=== PATIENT | female | born 1930 | race Caucasian/White ===

== ENCOUNTER 2018-08-25 19:58 | Inpatient (IN) | payer MEDICARE, BC ==
[2018-08-25 20:11] VITALS: BP 139/73
[2018-08-25 20:54] LABS: APTT 23.9 SECONDS (22.8-39.4); BASOPHILS 0.3 % (0-2); EOSINOPHILS 5.8 % (0-7); HEMATOCRIT 40.4 % (36.0-48.0); IMMATURE GRANULOCYTES 0.5 % (0-5); INR 1.1 (0.85-1.17); LYMPHOCYTES 10.7 % (15-50); MCH 28.1 pg (26.0-34.0); MCHC 32.2 g/dL (31.0-37.0); MCV 87.4 fL (80.0-100.0); MEAN PLATELET VOLUME 10.4 fL (7.4-10.4); MONOCYTES 9.1 % (2-11); NEUTROPHILS 73.6 % (40-80); PLATELET COUNT 141 10x3/uL (130-400); PROTIME 13.7 SECONDS (11.6-15.0); RBC 4.62 10x6/uL (4.00-5.40); RDW 14.3 % (11.5-14.5); WBC 7.6 10x3/uL (4.8-10.8)
[2018-08-25 20:55] LABS: UDS - AMPHET NEGATIVE QUAL (NEGATIVE); UDS - BARB NEGATIVE QUAL (NEGATIVE); UDS - BENZO POSITIVE QUAL (NEGATIVE); UDS - COCAINE NEGATIVE QUAL (NEGATIVE); UDS - OPIATE POSITIVE QUAL (NEGATIVE); UDS - PCP NEGATIVE QUAL (NEGATIVE); UDS - THC NEGATIVE QUAL (NEGATIVE)
[2018-08-25 21:00] LABS: ALKALINE PHOSPHATASE 54 U/L (46-116); ALT (SGPT) 21 U/L (10-68); BILIRUBIN - TOTAL 0.59 mg/dL (0.2-1.3); CALC OSMOLALITY 290 mosm/kg (275-300); CALCIUM 9.7 mg/dL (8.5-10.1); CARBON DIOXIDE 28.7 mmol/L (21.0-32.0); CHLORIDE - SERUM 104 mmol/L (98-107); CREATININE - SERUM 1.2 mg/dL (0.6-1.3); GLUCOSE 196 mg/dL (74-106); POTASSIUM - SERUM 4.4 mmol/L (3.5-5.1); PROTEIN - SERUM 5.9 g/dL (6.4-8.2); SODIUM 141 mmol/L (136-145); UREA NITROGEN 26 mg/dL (7-18); eGFR NON AFRICAN AMERICAN 45 mL/min (90-120)
[2018-08-25 21:12] LABS: CKMB 0.3 U/L (0.0-3.6); CREATINE KINASE 16 UL (21-215); PRO BNP 336 pg/mL (0-450); THYROID STIMULATING HORMONE 4.03 uIU/mL (0.36-3.74); TROPONIN-I < 0.017 ng/mL (0.000-0.060)
--- NOTE | 2018-08-25 22:32 | NUR ---
BLADDER SCAN COMPLETED, 212ML.
[2018-08-25 23:04] VITALS: BP 193/117
--- NOTE | 2018-08-26 00:02 | NUR ---
PT ARRIVED TO FLOOR VIA STRECHER WITH LISETH ARANDA FROM ER. PT ALERT BUT CONFUSED OF SITUATION. PT WAS ABLE TO JONATHAN HERSELF TO BED. COMPLAINS OF PAIN IN HER RIGHT KNEE STATING, "ARTHRITIS." PT VITALS STABLE, TELEMETRY PLACED PT RUNNING 86 SINUS RYTHEM. SON AT BEDSIDE. LATRICE BED ALARM IN PLACE. SIDE RAILS UP X2, CALL LIGHT WITHIN REACH. WILL CONTINUE TO MONITOR.
[2018-08-26] MEDS ORDERED: CRESTOR5 MG PO (01:42)
[2018-08-26] MEDS ORDERED: DONEPEZIL HCL10 MG PO (01:42)
[2018-08-26] MEDS ORDERED: ATIVAN0.5 MG PO (01:44)
[2018-08-26] MEDS ORDERED: ASPIRIN81 MG PO (01:44)
[2018-08-26] MEDS ORDERED: MULTI-DAY VITAM1 TAB PO (01:45)
[2018-08-26] MEDS ORDERED: CALCIUM 600 +1 EAC3 PO (01:46)
--- NOTE | 2018-08-26 02:11 | NUR ---
CALL FROM BRIANNA [facility] [place]. NEW ORDERS RECIEVED FOR PATIENT.
[2018-08-26 02:42] LABS: BASOPHILS 0.5 % (0-2); EOSINOPHILS 2.2 % (0-7); HEMATOCRIT 35.4 % (36.0-48.0); HEMOGLOBIN 11.3 g/dL (12-16); IMMATURE GRANULOCYTES 0.3 % (0-5); LYMPHOCYTES 18.1 % (15-50); MCH 27.6 pg (26.0-34.0); MCHC 31.9 g/dL (31.0-37.0); MCV 86.3 fL (80.0-100.0); MEAN PLATELET VOLUME 10.7 fL (7.4-10.4); MONOCYTES 10.4 % (2-11); NEUTROPHILS 68.5 % (40-80); PLATELET COUNT 135 10x3/uL (130-400); RDW 14.1 % (11.5-14.5); WBC 5.9 10x3/uL (4.8-10.8)
[2018-08-26 03:02] LABS: CALC OSMOLALITY 285 mosm/kg (275-300); CALCIUM 9.4 mg/dL (8.5-10.1); CARBON DIOXIDE 25.6 mmol/L (21.0-32.0); CHLORIDE - SERUM 106 mmol/L (98-107); CKMB 0.3 U/L (0.0-3.6); CREATINE KINASE 16 UL (21-215); CREATININE - SERUM 1.1 mg/dL (0.6-1.3); SODIUM 141 mmol/L (136-145); TROPONIN-I < 0.017 ng/mL (0.000-0.060); UREA NITROGEN 21 mg/dL (7-18); eGFR NON AFRICAN AMERICAN 50 mL/min (90-120)
[2018-08-26 03:03] LABS: GLUCOSE 137 mg/dL (74-106)
--- NOTE | 2018-08-26 03:23 | NUR ---
ADMISSION ASSESSMENT COMPLETED. PT RESTING IN BED. NO DISTRESS. MONITOR. IMPLEMENT PLAN OF CARE.
[2018-08-26 04:00] VITALS: BP 102/53
--- NOTE | 2018-08-26 07:40 | NUR ---
AM ROUNDS PT RESTING COMFORTABLY IN BED, WITH EYES CLOSED, EASILY AROUSES TO VOICE. PT A/O X2, RESP EVEN AND NONLABORED ON RA. MONITOR SHOWING SR WITH RATE OF 99. PT DENIES ANY NEEDS AT THIS TIME, SON AT BEDSIDE, CALL LIHGT IN REACH, BEDSIDE RAILS X2, NAD NOTED. WILL CONTINUE PLAN OF CARE.
[2018-08-26 07:50] VITALS: BP 102/53; BMI 26.6
[2018-08-26 08:13] VITALS: BP 135/69
[2018-08-26 09:08] LABS: CKMB 0.4 U/L (0.0-3.6); CREATINE KINASE 18 UL (21-215); TROPONIN-I < 0.017 ng/mL (0.000-0.060)
--- NOTE | 2018-08-26 09:22 | NUR ---
HELPED PT TO BATHROOM AND BACK TO BED, PT ONLY HAD A SMALL BM. NEW BAG OF LR HUNG AT THIS TIME. PT DENIES ANY OTHER NEEDS AT THIS TIME. SON AT BEDSIDE, CALL LIGHT I REACH, BEDSIDE RAILS X2, NAD NOTED, WILL CONTINUE TO MONITOR.
[2018-08-26 12:35] VITALS: BMI 26.6
[2018-08-26 13:04] LABS: APPEARANCE CLEAR (CLEAR); BILIRUBIN NEGATIVE (NEGATIVE); COLOR YELLOW (YELLOW); GLUCOSE NEGATIVE (NEGATIVE); KETONE NEGATIVE (NEGATIVE); NITRITE NEGATIVE (NEGATIVE); PROTEIN NEGATIVE (NEGATIVE); SPECIFIC GRAVITY 1.005 (1.005-1.020); UROBILINOGEN NORMAL (NORMAL)
--- NOTE | 2018-08-26 13:09 | NUR ---
LT FA IV PULLED OUT ACCIDENTLY WITH CATHETER TIP INTACT. SON WANTS TO WAIT UNTIL DOCTOR ROUNDS BEFORE STARTING NEW IV. CAROTID DROPLER BEING DONE AT THIS TIME. PT DENIES ANY NEEDS AT THIS TIME. CALL LIGHT IN REACH, NAD NOTED, WILL CONTINUE TO MONITOR TO MONITOR.
[2018-08-26 13:10] LABS: BACTERIA NONE SEEN /hpf (NONE SEEN); EPITHELIAL CELLS NSEEN /hpf (0-5); RED CELLS - URINE 0-5 /hpf (0-5); WHITE CELLS - URINE NSEEN /hpf (0-5)
[2018-08-26 13:18] VITALS: BP 127/65
--- NOTE | 2018-08-26 13:18 | NUR ---
ORTHOSTATIC BLOOD PRESSURES LAYING 127/65, SITTING 101/64, AND STANDING 103/57.
--- NOTE | 2018-08-26 14:49 | NUR ---
NOTIFIED DR. BOOTHE AND CONNIE VALDIVIA ABOUT PT'S IV COMING OUT, AND PT NOT WANTING ANOTHER IV STARTED. DR. BOOTHE STATED THAT IT WOULD BE OK FOR NOW NOT TO START NEW IV.
--- NOTE | 2018-08-26 15:41 | NUR ---
PT RESTING COMFORTABLY IN BED, WITH EYES CLOSED, FAMILY AT BEDSIDE, CALL LIGHT IN REACH, NAD NOTED, WILL CONTINUE TO MONITOR.
--- NOTE | 2018-08-26 16:16 | NUR ---
HELPED PT TO BATHROOM AND BACK TO BED, PT STATING " I WANT TO GO HOME". INFORMED PT THAT SHE WILL BE STAYING OVERNIGHT, PT STATED " I AM FINE I DONT NEED TO BE HERE." PT DENIES ANY OTHER NEEDS AT THIS TIME. CALL LIGHT IN REACH, FAMILY AT BEDSIDE, NAD NOTED, WILL CONTINUE TO MONITOR.
[2018-08-26 17:19] VITALS: BP 145/81
--- NOTE | 2018-08-26 19:30 | NUR ---
PT LAYING IN BED ALERT X2. PT CONFUSED WITH TIME AND SITUATION. RR EVEN AND UNLABORED. NO DISTRESS. FAMILY AT BEDSIDE. BED LOW, ALARM IN PLACE, SIDE RAILS UP X2, CALL LIGHT WITHIN REACH. WILL CONTINUE TO MONITOR.
[2018-08-26 20:00] VITALS: BP 139/72
--- NOTE | 2018-08-26 22:16 | NUR ---
PT UP WALKING AROUND IN HALLWAY WITH YANE AT SIDE. PT HAS NO S/S OF DISTRESS. WILL CONTINUE TO MONITOR.
[2018-08-27] VITALS: BP 133/79
--- NOTE | 2018-08-27 03:49 | NUR ---
PT ASSISTED TO BATHROOM BY FAMILY. NO S/S OF DISTRESS. BED LOW CALL LIGHT WITHIN REACH. WILL CONTINUE TO MONITOR.
[2018-08-27 04:00] VITALS: BP 170/90
--- NOTE | 2018-08-27 05:05 | NUR ---
I have reviewed this patient and I concur with the Shift Assessment completed by the Licensed Practical Nurse today this shift.
[2018-08-27 05:22] LABS: BASOPHILS 0.7 % (0-2); EOSINOPHILS 14.3 % (0-7); HEMATOCRIT 35.7 % (36.0-48.0); HEMOGLOBIN 11.4 g/dL (12-16); IMMATURE GRANULOCYTES 0.5 % (0-5); LYMPHOCYTES 25.2 % (15-50); MCH 27.7 pg (26.0-34.0); MCHC 31.9 g/dL (31.0-37.0); MCV 86.7 fL (80.0-100.0); MEAN PLATELET VOLUME 10.9 fL (7.4-10.4); MONOCYTES 12.7 % (2-11); NEUTROPHILS 46.6 % (40-80); PLATELET COUNT 131 10x3/uL (130-400); RBC 4.12 10x6/uL (4.00-5.40); RDW 14.4 % (11.5-14.5)
[2018-08-27 05:35] LABS: ALBUMIN 2.5 g/dL (3.4-5.0); ANION GAP 13.4 mmol/L (8-16); BILIRUBIN - TOTAL 0.45 mg/dL (0.2-1.3); CALCIUM 8.7 mg/dL (8.5-10.1); CARBON DIOXIDE 26.4 mmol/L (21.0-32.0); POTASSIUM - SERUM 3.8 mmol/L (3.5-5.1); PROTEIN - SERUM 5.5 g/dL (6.4-8.2); WBC 4.3 10x3/uL (4.8-10.8)
[2018-08-27 08:51] VITALS: BP 138/76
[2018-08-27 12:21] VITALS: BP 147/83
[2018-08-27] MEDS ORDERED: GEODON20 MG PO (16:39)
--- NOTE | 2018-08-27 17:36 | NUR ---
ALERT AND ORIENTED X2. FAMILY AT BEDSIDE. NO IV. DISCHARGE INSTRUCTIONS GIVEN VERBALLY AND WRITTEN. DISCHARGE PAPERS SIGNED ON CHART. ESCORT TO RIDE VIA WHEELCHAIR. REMAINS FREE FROM INJURY.
--- NOTE | 2018-08-28 08:17 | MORECARE ---
CASE MANAGEMENT DISCHARGE SUMMARY PATIENT: BRIAN FONTENOT UNIT: [id number] ADM DATE: 08/25/18 AGE: 87 : [birth year] SEX: F ROOM/BED: D.2109 AUTHOR: LIZZ LOPEZ PHYSICIAN: REFERRING PHYSICIAN: ZACHARY HILL DO DATE OF SERVICE: 08/28/18 Discharge Plan Patient Name: BRIAN FONTENOT Facility: [facility]:[place] : 1930 Planned Disposition: Home Anticipated Discharge Date: 08/27/18 Discharge Date: 08/27/2018 Expected LOS: 2 Initial Reviewer: [email or web address] Initial Review Date: 08/28/2018 Generated: 08/28/18 9:16 am Coverage Notice Reviewer: [email or web address] Frank Severino Notice Issued Date-Time: 08/26/2018 12:30 Notice Type: Medicare Outpatient Observation Notice Notice Delivered To: Patient Relationship to Patient: Self Machine Stripper Name: Delivery Method: HAND - Hand Delivered Alice Days: Prior Verbal Notification: Recipient Understood Notice: Yes Recipient Signature: Yes Med Rec Note Co-signed by Attending: Coverage Notice Comment: Patient Name: BRIAN FONTENOT Page [phone] at 0817 All edits/amendments must be made on the electronic document DICTATION DATE: 08/28/18815 HAT LINING BLOCKER: JASSON 08/28/18815 RPT#: [id number] DC DATE:08/27/18 STATUS: DIS IN [place] [id number] [place] [address] END OF REPORT
--- NOTE | 2018-08-28 09:50 | EC ---
PATIENT:BRIAN FONTENOT DATE OF SERVICE: 08/25/18 SEX: F MEDICAL RECORD: [id number] DATE OF : [birth year] LOCATION:D.M2 D.210 AGE OF PATIENT: 87 ADMISSION DATE: 08/25/18 REFERRING PHYSICIAN: INTERPRETING PHYSICIAN: DAYAMI STROUD MD ECHOCARDIOGRAM REPORT ECHO CHARGES 4 ECHO COMPLETE Date: 08/26/18 CLINICAL DIAGNOSIS: SYNCOPE ECHOCARDIOGRAPHIC MEASUREMENTS (adult normal given) AC root (d.<3.7cm) 3.5 cm LV Septum d (<1.2 cm> 1.2 cm Valve Excursion 2.0 cm LV Septum (systole) 2.0 cm Left Atria (s.<4.0cm> 3.1 cm LVPW d(<1.2cm) 1.4 cm RV (d.<2.3cm) 2.6 cm LVPW (sytole) 1.9 cm LV diastole(<5.6CM) 5.3 cm MV E-F(>70mm/sec) cm LV systole 3.2 cm LVOT Diameter 1.9 cm MV exc.(>10mm) cm Est.ejection fraction (50-75%) % DOPPLER: LVIT cm/sec A 122 cm/sec E 77.0 cm/sec LA cm/sec RVSP 53.0 mmHg LVOT 88.0 cm/sec AOP1/2T m/s Asc. Ao 109 cm/sec RVOT 62.0 cm/sec RA cm/sec PA 70.0 cm/sec AV Gradient Peak 4.8 mmHg AV Mean 2.4 mmHg AV Area 2.0 cm MV Gradient Peak 3.6 mmHg MV Mean 1.2 mmHg MV Area cm COMMENTS: Computer Numerical Control Programmer: Melecio MILESOE Train Dispatcher: 1 Dr. Stroud TAPE# PACS Pericardial Effusion N DATE OF SERVICE: 08/26/2018 FINDINGS: 1. Left ventricular chamber size is within normal limits. Left ventricular systolic function is normal. Overall ejection fraction is estimated at 55%. 2. Left atrium, right atrium, and right ventricular chamber sizes are within normal limit. 3. Valvular structures: The mitral valve demonstrates heavy calcium but no mitral stenosis. Aortic valve as well demonstrates calcific aortic sclerosis, but no aortic stenosis. ECHOCARDIOGRAM REPORT [id number] BRIAN FONTENOT 4. Doppler interrogation only reveals trace mitral regurgitation and moderate tricuspid regurgitation. No other valvular insufficiency or stenosis. Pulmonary systolic pressure is estimated at 53 mmHg. 5. No evidence of pericardial effusion or left ventricular thrombus. TRANSINT:[id number] Voice Confirmation ID: [id number] DOCUMENT ID: [id number] DAYAMI STROUD MD at 0950 CC: [id number] DICTATION DATE: 08/27/18 1102 SHOP MECHANIC HELPER: 08/27/18 1650 DIS IN 08/27/18 [place] [id number] [place] [id number]
== END 2018-08-27 17:38 | disposition home or self-care (01) | DRG 312 ==
LOC: D.ER 19:58 → D.M2 22:03 → OBSVTIME 22:03 → D.M2 08-27 12:28
PROVIDERS: Family Medicine; ADMIT Family Medicine; ATTEND Family Medicine
DX: R55 Syncope and collapse (principal); F05 Delirium due to known physiological condition; F03.90 Unspecified dementia, unspecified severity, without behavioral disturbance, psychotic disturbance, mood disturbance, and anxiety; F11.90 Opioid use, unspecified, uncomplicated

== ENCOUNTER 2019-05-13 15:33 | Inpatient (IN) | payer MEDICARE, BC ==
[2019-05-13] VITALS (7 sets, daily range): BP systolic 120–166; BP diastolic 56–86; BMI 21.9
[~2019-05-13] VITALS: Ht 170.2 cm; Wt 63.5 kg
[~2019-05-13 15:33] MED LIST: ASPIRIN81 MG PO; ATIVAN0.5 MG PO; CALCIUM 600 +1 EAC3 PO; CRESTOR5 MG PO; DONEPEZIL HCL10 MG PO; GEODON20 MG PO; MULTI-DAY VITAM1 TAB PO
[2019-05-13 16:48] LABS: BASOPHILS 0.1 % (0-2); EOSINOPHILS 1.2 % (0-7); HEMATOCRIT 43.3 % (36.0-48.0); HEMOGLOBIN 14.2 g/dL (12-16); IMMATURE GRANULOCYTES 0.5 % (0-5); LYMPHOCYTES 12.5 % (15-50); MCH 28.4 pg (26.0-34.0); MCHC 32.8 g/dL (31.0-37.0); MCV 86.6 fL (80.0-100.0); MEAN PLATELET VOLUME 10.7 fL (7.4-10.4); MONOCYTES 6.4 % (2-11); NEUTROPHILS 79.3 % (40-80); RDW 15.6 % (11.5-14.5); WBC 8.2 10x3/uL (4.8-10.8)
[2019-05-13 16:52] LABS: PROTIME 13.1 SECONDS (11.6-15.0)
[2019-05-13 16:53] LABS: ANION GAP 15.3 mmol/L (8-16); CALCIUM 9.5 mg/dL (8.5-10.1); CARBON DIOXIDE 23.4 mmol/L (21.0-32.0); CREATININE - SERUM 1.8 mg/dL (0.6-1.3); POTASSIUM - SERUM 3.7 mmol/L (3.5-5.1)
[2019-05-13 16:58] LABS: PLATELET COUNT 187 10x3/uL (130-400)
[2019-05-13 16:59] LABS: ALBUMIN 3.5 g/dL (3.4-5.0); BILIRUBIN - TOTAL 0.8 mg/dL (0.2-1.3); PROTEIN - SERUM 6.9 g/dL (6.4-8.2)
--- NOTE | 2019-05-13 17:18 | NUR ---
PT TO CT
[2019-05-13 18:18] LABS: CKMB 0.8 U/L (0.0-3.6); CREATINE KINASE 31 UL (21-215); TROPONIN-I < 0.017 ng/mL (0.000-0.060)
[2019-05-13 18:36] LABS: BILIRUBIN NEGATIVE (NEGATIVE); GLUCOSE 500 mg/dL (NEGATIVE); KETONE NEGATIVE (NEGATIVE); NITRITE NEGATIVE (NEGATIVE); SPECIFIC GRAVITY 1.025 (1.005-1.020); UROBILINOGEN NORMAL (NORMAL)
[2019-05-13 18:37] LABS: AMORPHOUS SEDIMENT <1+ /lpf (NONE SEEN); BACTERIA MANY /hpf (NEGATIVE); GRANULAR CAST 0-5 /lpf (NONE SEEN); WHITE CELLS - URINE OCC /hpf (NEGATIVE)
--- NOTE | 2019-05-13 19:09 | NUR ---
PT LEFT WITH DR LARA FOR SURGERY. FAMILY AT BEDSIDE. SURGERY CONSENT, BLOOD TRANSFUSION CONSENT AND ANESTHESIOLOGY CONSENT SIGNED.
--- NOTE | 2019-05-13 22:45 | NUR ---
CALLED WEB PUBLISHER IN REGARDS TO PULLING MEDS
[2019-05-14] VITALS (7 sets, daily range): BP systolic 109–128; BP diastolic 59–86; Ht 170.2 cm; Wt 63.5 kg
[2019-05-14 06:28] LABS: BASOPHILS 0.3 % (0-2); IMMATURE GRANULOCYTES 0.5 % (0-5); LYMPHOCYTES 13.1 % (15-50); MCH 27.6 pg (26.0-34.0); MCV 86.3 fL (80.0-100.0); MEAN PLATELET VOLUME 10.4 fL (7.4-10.4); MONOCYTES 7.2 % (2-11); NEUTROPHILS 76.9 % (40-80); RDW 15.5 % (11.5-14.5)
[2019-05-14 06:34] LABS: HEMATOCRIT 32.8 % (36.0-48.0); HEMOGLOBIN 10.5 g/dL (12-16); PLATELET COUNT 128 10x3/uL (130-400); WBC 5.9 10x3/uL (4.8-10.8)
[2019-05-14 07:27] LABS: BILIRUBIN - TOTAL 0.99 mg/dL (0.2-1.3); CALCIUM 7.5 mg/dL (8.5-10.1); CREATININE - SERUM 1.4 mg/dL (0.6-1.3); POTASSIUM - SERUM 3.5 mmol/L (3.5-5.1)
[2019-05-14 07:28] LABS: ALBUMIN 2.5 g/dL (3.4-5.0); ANION GAP 18.9 mmol/L (8-16); CARBON DIOXIDE 16.6 mmol/L (21.0-32.0); PROTEIN - SERUM 4.7 g/dL (6.4-8.2)
--- NOTE | 2019-05-14 07:30 | NUR ---
RESTING QUIETLY WITH EYES CLOSED. BREAKFAST SERVED IN ROOM. FAMILY AT BEDSIDE.
--- NOTE | 2019-05-14 07:41 | OP ---
PATIENT NAME: BRIAN ESTRADA MEDICAL RECORD: [id number] :[birth year] LOCATION:D.M3 D.1212 ADMISSION DATE:05/13/19 SURGEON: REYES LARA DO DATE OF OPERATION: 05/13/2019 PROCEDURE PERFORMED: Right gema hip arthroplasty. PREOPERATIVE DIAGNOSIS: Right displaced femoral neck fracture. POSTOPERATIVE DIAGNOSIS: Right displaced femoral neck fracture. INDICATIONS: Ms. Estrada is an 88-year-old female who is demented, who fell today on the right hip. She is very well cared for by her family. She was brought to the ER and seen to have a hip fracture. She cannot bear weight on it. It was shortened and externally rotated. I informed her and the family that we would need to do a gema hip on this and that she would be a high risk for mortality due to her dementia and the hip fracture. They were understanding of that and informed him of the risks of infection, bleeding, damage to nerves and vessels, need for further surgery, fracture, failure of implants and blood clots, and even and she signed the consent. SURGEON: Reyes Lara DO DESCRIPTION OF PROCEDURE: The patient was taken to the operative suite, laid in the supine position, given general anesthetic and intubated. She was given 2 grams Ancef and a gram of TXA prior to starting the procedure. We then moved over to the [place] table and positioner. A timeout was performed, everyone was in agreement with the correct side, site, patient and procedure. She was then prepped and draped in sterile fashion. I reprepped the hip prior to putting the final drape on with ChloraPrep, and once that had been done, the timeout was then performed. We began by making an incision along the tensor fasciae jonna muscle. Careful dissection was made down to the muscle itself, opening up the fascia to it. The fascia was taken anteriorly muscle posteriorly and then opened up the rectus interval. The rectus interval was then opened and the dissection was made down to the ascending branch of lateral femoral circumflex artery. These were tied off with the accompanying veins and coagulated with the Aquamantys and cut. I then opened up the capsule putting Homans' on either side of the neck and on opening up the capsule, portillo of blood came out and tagged the capsule with #2 Ethibond. We then put a Hohmann intracapsular and made a neck cut, removed the neck cut and then the head of the femur. Once this was all cleaned out, the femur was exposed. A cookie cutter and canal finder were used to open up the canal and then broached up to a 13 and 13 was reduced and seems to fit very well with a -6 neck. We then brought it out and there was a slightly turned where the stem was, we put a 14 down, it was too tight and resected with a 13 and once the 13 was down, it fit very well and did not move at all. Once we did that the hip was reduced again with a 13 stem down with a high offset neck and x-rays were taken. It was confirmed to be in good position on AP of the hip and the appropriate lengths compared to the left hip on AP pelvis, no fracture seen in the femur either. The stem fit very well and the hip was then irrigated with 10% povidone iodine with 500 mL normal saline, it was up for 3 minutes. It was then irrigated out with over a liter of normal saline and put the tobramycin and vancomycin powder along with the Najma powder. The capsule was then closed with #2 Ethibond and then the tensor fascia jonna fascia was closed with #1 Vicryl in [id number] fashion and then a running locking stitch. The skin was then closed with 2-0 Vicryl in an inverted OPERATIVE REPORT [id number] BRIAN ESTRADA interrupted fashion, 4-0 Monocryl in the skin and Prineo glue placed on the skin. Dressed with Telfa and Tegaderm. She was then given another gram of TXA, awakened and taken to recovery in stable condition. Blood loss approximately 150 mL. COMPLICATIONS: None. TRANSINT:[id number] Voice Confirmation ID: [id number] DOCUMENT ID: [id number] REYES LARA DO at 0741 CC: [id number] DICTATION DATE: 05/13/192104 HEAD STRENGTH AND CONDITIONING COACH: 05/14/19 0209 ADM IN [facility] [address] [place] [address]
--- NOTE | 2019-05-14 09:39 | NUR ---
AWAKE AND ALERT. ORIENTED X3. C/O PAIN TO LEFT HIP. WILL GIVE PRN. LUNGS ARE CLEAR BILATERALLY, NO COUGH NOTED. USED IS INSTRUCTED. SKIN IS INTACT WITHOUT REDNESS EXCEPT INCISION TO LEFT HIP/GROIN AREA WHCIH HAS A DRY INTACT DRESSING IN PLACE. ROCK PATENT WITH CLEAR YELLOW URINE. SON AT BEDSIDE. UP TO CHAIR WITH MAX ASSIST OF 2 TO CHAIR AT BEDSIDE. REQUESTED AND GIVEN ONE HYDROCODONE AFTER TRANSFER FOR PAIN MANAGMENT WITH C/O IT HURTS, IT HURTS.
--- NOTE | 2019-05-14 09:50 | MORECARE ---
CASE MANAGEMENT DISCHARGE SUMMARY PATIENT: BRIAN FONTENOT UNIT: [id number] ADM DATE: 05/13/19 AGE: 88 : [birth year] SEX: F ROOM/BED: D.1212 AUTHOR: LIZZ LOPEZ PHYSICIAN: REFERRING PHYSICIAN: JESI CARBAJAL MD DATE OF SERVICE: 05/14/19 Discharge Plan Patient Name: BRIAN FONTENOT Facility: [facility]:[place] : 1930 Planned Disposition: Anticipated Discharge Date: 05/15/19 Discharge Date: Expected LOS: 2 Initial Reviewer: [email or web address] Initial Review Date: 05/13/2019 Generated: 05/14/19 10:49 am Coverage Notice Reviewer: [email or web address] Frank Donws Notice Issued Date-Time: 05/14/2019 9:42 Notice Type: IM Admission Notice Notice Delivered To: Family Member Relationship to Patient: Son Office Clinician Name: JON FONTENOT Delivery Method: - Alice Days: Prior Verbal Notification: Recipient Understood Notice: Yes Recipient Signature: Yes Med Rec Note Co-signed by Attending: Coverage Notice Comment: PEÑA FORM SIGNED BY PATIENT'S SON JON FONTENOT. Patient Name: BRIAN FONTENOT Page [phone] at 0950 All edits/amendments must be made on the electronic document DICTATION DATE: 05/14/1949 PROJECTION ENGINEER: JASSON 05/14/19 0949 RPT#: [id number] DC DATE: STATUS: ADM IN [facility] [address] [place] [address] END OF REPORT
--- NOTE | 2019-05-14 09:57 | MORECARE ---
CASE MANAGEMENT DISCHARGE SUMMARY PATIENT: BRIAN ESTRADA UNIT: [id number] ADM DATE: 05/13/19 AGE: 88 : [birth year] SEX: F ROOM/BED: D.1212 AUTHOR: JESSICADOC PHYSICIAN: REFERRING PHYSICIAN: JESI CARBAJAL MD DATE OF SERVICE: 05/14/19 Discharge Plan Patient Name: BRIAN ESTRADA Facility: [facility]:[place] : 1930 Planned Disposition: Anticipated Discharge Date: 05/15/19 Discharge Date: Expected LOS: 2 Initial Reviewer: [email or web address] Initial Review Date: 05/13/2019 Generated: 05/14/19 10:57 am DCPIA - Discharge Planning Initial Assessment Updated by ELODIA: Heather Downs on 05/14/19 9:52 am * Is the patient Alert and Oriented? Yes * How many steps to enter\exit or inside your home? NONE * PCP Dr. Kay's nurse practitioner Levy HANSON * Pharmacy [facility] * Preadmission Environment Home with Family * ADLs Partial Dependent * Partial ADLs (Assistance needed) Bathing Dressing Medication Management * Equipment Walker Wheelchair * List name and contact numbers for known caregivers / representatives who currently or will assist patient after discharge: Jon Estrada - son - [phone] * Verbal permission to speak to the caregivers and representatives has been obtained from the patient. Yes * Community resources currently utilized Private Duty Care * Please name any agencies selected above. CG every Thrusday for bathing and ADL needs. * Additional services required to return to the preadmission environment? Yes * Can the patient safely return to the preadmission environment? Yes * Has this patient been hospitalized within the prior 30 days at any hospital? No Coverage Notice Reviewer: [email or web address] Downs Notice Issued Date-Time: 05/14/2019 9:42 Notice Type: IM Admission Notice Notice Delivered To: Family Member Relationship to Patient: Son In Process Inspector Name: JON ESTRADA Delivery Method: - Alice Days: Prior Verbal Notification: Recipient Understood Notice: Yes Recipient Signature: Yes Med Rec Note Co-signed by Attending: Coverage Notice Comment: PEÑA FORM SIGNED BY PATIENT'S SON JON ESTRADA. Reviewer: [email or web address] Downs Notice Issued Date-Time: 05/14/2019 9:42 Notice Type: Patient Choice Letter Notice Delivered To: Family Member Relationship to Patient: Son In Process Inspector Name: JON ESTRADA Delivery Method: - Alice Days: Prior Verbal Notification: Recipient Understood Notice: Yes Recipient Signature: Yes Med Rec Note Co-signed by Attending: Coverage Notice Comment: 1. [facility] 2. [facility] 3. [facility] Last DP export: 05/14/19 8:50 a Patient Name: BRIAN ESTRADA Page 13020 at 0957 All edits/amendments must be made on the electronic document DICTATION DATE: 05/14/19956 HOP GROWER: JASSON 05/14/19956 RPT#: [id number] DC DATE: STATUS: ADM IN [facility] [address] [place] [address] END OF REPORT
--- NOTE | 2019-05-14 10:00 | NUR ---
CONTINUES TO C/O NEEDING TO VOID. ROCK IS PATENT AND RETURNS SOME URINE. BLADDER SCANNER SHOWED ONLY 21 CC URINE. WILL CONTINUE TO MONITOR.
--- NOTE | 2019-05-14 10:04 | MORECARE ---
CASE MANAGEMENT DISCHARGE SUMMARY PATIENT: BRIAN ESTRADA UNIT: [id number] ADM DATE: 05/13/19 AGE: 88 : [birth year] SEX: F ROOM/BED: D.1212 AUTHOR: LIZZ LOPEZ PHYSICIAN: REFERRING PHYSICIAN: JESI CARBAJAL MD DATE OF SERVICE: 05/14/19 Discharge Plan Patient Name: BRIAN ESTRADA Facility: [facility]:[place] : 1930 Planned Disposition: Anticipated Discharge Date: 05/15/19 Discharge Date: Expected LOS: 2 Initial Reviewer: [email or web address] Initial Review Date: 05/13/2019 Generated: 05/14/19 11:04 am Comments DCP- Discharge Planning Updated by [email or web address]: Heather Downs on 05/14/19 8:[address] DC PLAN: Referral to [facility] - pending ANTICIPATED DC NEEDS: rehab CM met with patient and her son Jon Estrada to complete initial dc planning assessment. CM educated patient and her son on the CM role and verbal consent given by patient to complete assessment. CM verified patient's address, phone number, and emergency contact phone numbers. Patient lives at home with her significant other. Patient requires assistance with all ADL's and IADL's. Patient has a cg that comes every to assist with bathing, cleaning, and whatever is needed for her. Her significant other cares for her all other days. At discharge patient will require rehab. CM discussed all rehab options with patient and son. Jon signed connor form for 1. [facility] [place], 2. [facility], and 3. [facility]. CM received order from Dr. Valenzuela for rehab prescreen. CM left message on Annalise's voicemail notifying her of the referral. CONNOR form left with patient's son and placed on her chart. CM will continue to follow and will assist as needed with dc plans/needs. Heather Downs RN, [facility] DCPIA - Discharge Planning Initial Assessment Updated by [email or web address]: Heather Downs on 05/14/19 9:52 am * Is the patient Alert and Oriented? Yes * How many steps to enter\exit or inside your home? NONE * PCP Dr. Kay's nurse practitioner Levy HANSON * Pharmacy [facility] in [place] * Preadmission Environment Home with Family * ADLs Partial Dependent * Partial ADLs (Assistance needed) Bathing Dressing Medication Management * Equipment Walker Wheelchair * List name and contact numbers for known caregivers / representatives who currently or will assist patient after discharge: Jon Estrada - son - [phone] * Verbal permission to speak to the caregivers and representatives has been obtained from the patient. Yes * Community resources currently utilized Private Duty Care * Please name any agencies selected above. CG every Thrusday for bathing and ADL needs. * Additional services required to return to the preadmission environment? Yes * Can the patient safely return to the preadmission environment? Yes * Has this patient been hospitalized within the prior 30 days at any hospital? No Coverage Notice Reviewer: [id number] Frank Downs Notice Issued Date-Time: 05/14/2019 9:42 Notice Type: IM Admission Notice Notice Delivered To: Family Member Relationship to Patient: Son Brakes Inspector Name: JON ESTRADA Delivery Method: - Alice Days: Prior Verbal Notification: Recipient Understood Notice: Yes Recipient Signature: Yes Med Rec Note Co-signed by Attending: Coverage Notice Comment: PEÑA FORM SIGNED BY PATIENT'S SON JON ESTRADA. Reviewer: [id number] Frank Downs Notice Issued Date-Time: 05/14/2019 9:42 Notice Type: Patient Choice Letter Notice Delivered To: Family Member Relationship to Patient: Son Brakes Inspector Name: JON ESTRADA Delivery Method: - Alice Days: Prior Verbal Notification: Recipient Understood Notice: Yes Recipient Signature: Yes Med Rec Note Co-signed by Attending: Coverage Notice Comment: 1. [facility] 2. [facility] 3. [facility] Last DP export: 05/14/19 8:57 a Patient Name: BRIAN ESTRADA Page [phone] at 1004 All edits/amendments must be made on the electronic document DICTATION DATE: 05/14/19 1004 SENIOR PASTOR: JASSON 05/14/19 1004 RPT#: [id number] DC DATE: STATUS: ADM IN [facility] [address] [place] [address] END OF REPORT
--- NOTE | 2019-05-14 10:15 | NUR ---
ASSISTED BACK TO BED PER STAFF. POSITIONED IN BED FOR COMFORT. C/O NEED TO VOID. ROCK IS DRAINING SLOWLY. WILL MONITOR.
--- NOTE | 2019-05-14 12:30 | NUR ---
ATE ABOUT HALF OF LUNCH TRAY WITH HELP FROM SIGNIFICANT OTHER. NO C/O AT THIS TIME.
--- NOTE | 2019-05-14 14:05 | NUR ---
SIGNIFICANT OTHER AT BEDSIDE. REPORTS PATIENT ANXIOUS AND TRYING TO CLIMB OOB. REQUESTED AND GIVEN 0.5MG ATIVAN PO. WILL MONITOR.
--- NOTE | 2019-05-14 16:00 | NUR ---
VERY SLEEPY BUT RESPONDS TO VERBAL STIMULATION.
--- NOTE | 2019-05-14 16:51 | NUR ---
Rehab Note- Acute Inpatient Rehab prescreen order received. The patient is a good inpatient acute rehab candidate. Will accept when medically stable and ready for discharge. Spoke with TATYANA Romero. Will follow at this time. Thank you for this referral! Annalise Reno RN Clinical Liaison, [facility] Rehab
--- NOTE | 2019-05-14 18:30 | NUR ---
ATE ONLY A FEW BITES OF DINNER. STILL SLEPPY BUT RESPONDS TO VERBAL STIMULATION. NO CHANGES NOTED. DENIES NEEDS. TOTAL ROCK OUTPUT FOR THE SHIFT IS 625. WILL CONTINUE TO MONITOR.
--- NOTE | 2019-05-14 20:00 | NUR ---
LYING IN BED. CONFUSED AND PREOCCUPIED WITH NEEDING TO URINATE EVEN THOUGH SHE HAS A CATHETER. ORIENTED TO SELF ONLY. SIG OTHER AT BEDSIDE. RESP EVEN AND NONLABORED. ROCK CATH PATENT AND DRAINING CLEAR YELLOW URINE. DRSG NOTED TO RT HIP/THIGH AREA IS C/D/I. SALINE LOCK NOTED TO RT FOREARM. 1/2 NS @ 100 ML/HR INFUSING IN LT HAND WITHOUT DIFF. CL IN REACH.
--- NOTE | 2019-05-14 22:19 | NUR ---
SON AT BEDSIDE. PT SITTING UP IN BED, AGITATED AND YELLING OUT. SON REQUESTS ATIVAN BE GIVEN. ATIVAN GIVEN AT THIS TIME PER ORDER. SON STATES SHE WAS UP ALL NIGHT LAST NIGHT. UNABLE TO REDIRECT BEHAVIOR. PREOCCUPIED WITH NEEDING TO URINATE ALTHOUGH CATH IS PRESENT AND DRAINING. HAS PULLED STAT LOCK OFF OF LEG. LATRICE ALARM ON. CL IN REACH.
--- NOTE | 2019-05-14 23:45 | NUR ---
PTS SON AT DESK ASKING IF THERE IS ANYTHING ELSE SHE CAN HAVE FOR AGITATION. PT SITTING UP IN BED, PULLING ON IV AND CATHETER. ORIENTED TO SELF ONLY. TRYING TO GET OOB, YELLING OUT. MEDICATED WITH HALDOL ORDERED. LATRICE ALARM ON. CL IN REACH.
--- NOTE | 2019-05-15 00:30 | NUR ---
SON REFUSED MIDNIGHT V/S CHECK. PT RESTING.
--- NOTE | 2019-05-15 01:00 | NUR ---
RESTING WITH EYES CLOSED. RESP SHALLOW, NONLABORED. SNORING. SON STATES HE IS GOING TO LEAVE NOW THAT SHE HAS SETTLED DOWN AND IS RESTING. LATRICE ALARM ON. CL IN REACH.
--- NOTE | 2019-05-15 04:40 | NUR ---
RESTING QUIETLY WITH EYES CLOSED. RESP NONLABORED. NO DISTRESS. HAS RESTED WELL SINCE HALDOL WAS GIVEN. CL IN REACH. LATRICE ALARM ON FOR PT SAFETY.
[2019-05-15 04:45] VITALS: BP 118/62
[2019-05-15 06:55] LABS: BASOPHILS 0.2 % (0-2); EOSINOPHILS 2.5 % (0-7); HEMATOCRIT 30.5 % (36.0-48.0); HEMOGLOBIN 9.5 g/dL (12-16); IMMATURE GRANULOCYTES 0.2 % (0-5); LYMPHOCYTES 11.8 % (15-50); MCH 27.2 pg (26.0-34.0); MCHC 31.1 g/dL (31.0-37.0); MCV 87.4 fL (80.0-100.0); MEAN PLATELET VOLUME 10.5 fL (7.4-10.4); MONOCYTES 8.1 % (2-11); NEUTROPHILS 77.2 % (40-80); RBC 3.49 10x6/uL (4.00-5.40); RDW 15.7 % (11.5-14.5); WBC 5.2 10x3/uL (4.8-10.8)
[2019-05-15 07:04] LABS: PLATELET COUNT 102 10x3/uL (130-400)
[2019-05-15 07:09] LABS: ALBUMIN 2.3 g/dL (3.4-5.0); ANION GAP 13.5 mmol/L (8-16); BILIRUBIN - TOTAL 0.76 mg/dL (0.2-1.3); CALCIUM 7.5 mg/dL (8.5-10.1); CREATININE - SERUM 1.3 mg/dL (0.6-1.3); POTASSIUM - SERUM 3.8 mmol/L (3.5-5.1); PROTEIN - SERUM 4.5 g/dL (6.4-8.2)
[2019-05-15 07:14] LABS: CARBON DIOXIDE 21.3 mmol/L (21.0-32.0)
--- NOTE | 2019-05-15 07:30 | NUR ---
AWAKE AND ALERT. ORIENTED TO SELF ONLY. ATTEMPTS TO REORIENT PER STAFF WITHOUT SUCCESS. WILL MONITOR. LUNGS ARE CLEAR BILATERALLY, NO COUGH NOTED. SKIN IS INTACT WITHOUT REDNESS EXCEPT INCISIONS TO RIGHT HIP WHICH HAVE A DRY INTACT DRESSINGS IN PLACE. IV TO LEFT HAND IS KINKED OVER, D/C WITH CATHETER INTACT. SL TO RIGHT AC IS PATENT WITHOUT REDNESS AT INSERTION SITE. ROCK IS PATENT WITH CLEAR YELLOW URINE. BREAKFAST SERVED IN ROOM. ATTEMPTS TO FEED PER STAFF. WITHOUT SUCCESS. SHE ACTUALLY THREW MALE STAFF OUT OF ROOM.
[2019-05-15 08:11] VITALS: BP 124/65
--- NOTE | 2019-05-15 09:30 | NUR ---
UP TO BED WITH PT TO CHIAR AT BEDSIDE. C/O PAIN TO RIGHT HIP AT LEVEL 3. GIVEN ONE HYDROCODONE PO FOR SAME. WILL MONITOR.
[2019-05-15 12:21] VITALS: BP 163/83
--- NOTE | 2019-05-15 12:30 | NUR ---
LUNCH SERVED IN ROOM. SON ASSISTE WITH MEAL. ATE A FEW BITES AND ALL OF HER APPLE COBBLER.
--- NOTE | 2019-05-15 13:30 | NUR ---
ASSISTED BACK TO BED PER PT. POSITIONED FOR COMFORT.
--- NOTE | 2019-05-15 16:18 | NUR ---
RESTING QUIETLY IN BED WITH EYES CLOSED.
[2019-05-15] MEDS ORDERED: MACROBID100 MG PO (16:30)
[2019-05-15] MEDS ORDERED: ASPIRIN81 MG PO (16:30)
[2019-05-15] MEDS ORDERED: HALDOL5 MG/ML IM (16:30)
[2019-05-15] MEDS ORDERED: HYDROCODON-ACE1 EA10 PO (16:30)
[2019-05-15] MEDS ORDERED: Senokot-S Tablet PO (16:31)
[2019-05-15] MEDS ORDERED: HYDROCODON-ACE1 EAC7 PO (16:31)
[2019-05-15] MEDS ORDERED: GEODON20 MG PO (16:31)
[2019-05-15] MEDS ORDERED: MULTI-DAY VITAM1 TAB PO (16:31)
[2019-05-15] MEDS ORDERED: ATIVAN0.5 MG PO (16:31)
[2019-05-15] MEDS ORDERED: PROTONIX40 MG PO (16:31)
[2019-05-15] MEDS ORDERED: MIRALAX17 GM PO (16:31)
[2019-05-15 16:45] VITALS: BP 145/75
--- NOTE | 2019-05-15 17:35 | NUR ---
REPORT CALLED TO [facility] ON REHAB. ALL QUESTIONS ANSWERED.
--- NOTE | 2019-05-15 17:45 | NUR ---
SL TO RIGHT FOREARM D/C WITH CATHETER INTACT. ROCK D/C WITH TIP INTACT WITHOUT DIFFICULTY. DISCHARGED TO REHAB VIA WC. DISCHARGE INSTRUCTIONS GIVEN TO FAMILY BOTH VERBALLY AND WRITTEN. ALL QUESTIONS ANSWERED. FAMILY VERBALIZED UNDERSTANDING OF SAME. ALL BELONGINGS WITH PATIENT. DISCHARGED TO REHAB ROOM 1113A VIA WC.
--- NOTE | 2019-05-16 22:20 | MORECARE ---
CASE MANAGEMENT DISCHARGE SUMMARY PATIENT: BRIAN ESTRADA UNIT: [id number] ADM DATE: 05/13/19 AGE: 88 : [birth year] SEX: F ROOM/BED: D.1212 AUTHOR: LIZZ LOPEZ PHYSICIAN: REFERRING PHYSICIAN: JESI CARBAJAL MD DATE OF SERVICE: 05/16/19 Discharge Plan Patient Name: BRIAN ESTRADA Facility: [facility]:[place] : 1930 Planned Disposition: Anticipated Discharge Date: 05/15/19 Discharge Date: 05/15/2019 Expected LOS: 2 Initial Reviewer: [email or web address] Initial Review Date: 05/13/2019 Generated: 05/16/19 11:20 pm Comments DCP- Discharge Planning Updated by [email or web address]: Heather Downs on 05/14/19 8:[address] DC PLAN: Referral to [facility] - pending ANTICIPATED DC NEEDS: rehab CM met with patient and her son Jon Estrada to complete initial dc planning assessment. CM educated patient and her son on the CM role and verbal consent given by patient to complete assessment. CM verified patient's address, phone number, and emergency contact phone numbers. Patient lives at home with her significant other. Patient requires assistance with all ADL's and IADL's. Patient has a cg that comes every to assist with bathing, cleaning, and whatever is needed for her. Her significant other cares for her all other days. At discharge patient will require rehab. CM discussed all rehab options with patient and son. Jon signed connor form for 1. [facility] [place], 2. [facility], and 3. [facility]. CM received order from Dr. Valenzuela for rehab prescreen. CM left message on [employer] notifying her of the referral. CONNOR form left with patient's son and placed on her chart. CM will continue to follow and will assist as needed with dc plans/needs. Heather Downs RN, [facility] DCPIA - Discharge Planning Initial Assessment Updated by [email or web address]: Heather Downs on 05/14/19 9:52 am * Is the patient Alert and Oriented? Yes * How many steps to enter\exit or inside your home? NONE * PCP Dr. Kay's nurse practitioner Levy HANSON * Pharmacy [facility] in [place] * Preadmission Environment Home with Family * ADLs Partial Dependent * Partial ADLs (Assistance needed) Bathing Dressing Medication Management * Equipment Walker Wheelchair * List name and contact numbers for known caregivers / representatives who currently or will assist patient after discharge: Jon Estrada - jaren - [phone] * Verbal permission to speak to the caregivers and representatives has been obtained from the patient. Yes * Community resources currently utilized [facility] * Please name any agencies selected above. CG every Thrusday for bathing and ADL needs. * Additional services required to return to the preadmission environment? Yes * Can the patient safely return to the preadmission environment? Yes * Has this patient been hospitalized within the prior 30 days at any hospital? No Coverage Notice Reviewer: [email or web address] Downs Notice Issued Date-Time: 05/14/2019 9:42 Notice Type: IM Admission Notice Notice Delivered To: Family Member Relationship to Patient: Son Licensed Insurance Agent Name: JON ESTRADA Delivery Method: - Alice Days: Prior Verbal Notification: Recipient Understood Notice: Yes Recipient Signature: Yes Med Rec Note Co-signed by Attending: Coverage Notice Comment: PEÑA FORM SIGNED BY PATIENT'S SON JON ESTRADA. Reviewer: [email or web address] Frank Downs Notice Issued Date-Time: 05/14/2019 9:42 Notice Type: Patient Choice Letter Notice Delivered To: Family Member Relationship to Patient: Jaren Licensed Insurance Agent Name: JON ESTRADA Delivery Method: - Alice Days: Prior Verbal Notification: Recipient Understood Notice: Yes Recipient Signature: Yes Med Rec Note Co-signed by Attending: Coverage Notice Comment: 1. [facility] 2. [facility] 3. [facility] Last DP export: 05/14/19 9:04 a Patient Name: BRIAN ESTRADA Page [id number] at 2220 All edits/amendments must be made on the electronic document DICTATION DATE: 05/16/192219 UNIX ADMINISTRATOR: JASSON 05/16/192219 RPT#: [id number] DC DATE:05/15/19 STATUS: DIS IN [facility] [address] [place] [address] END OF REPORT
== END 2019-05-15 18:00 | DRG 470 ==
LOC: D.ER 15:33 → D.M3 15:33 → D.ER 22:08 → D.M3 05-15 18:00
PROVIDERS: Family Medicine; Orthopaedic Surgery; ADMIT Internal Medicine Nephrology; ATTEND Internal Medicine Nephrology
PROC: 0SRR0JZ Replacement of Right Hip Joint, Femoral Surface with Synthetic Substitute, Open Approach (ICD-10-PCS; principal; 2019-05-13 17:42)
DX: S72.001A Fracture of unspecified part of neck of right femur, initial encounter for closed fracture (principal); D62 Acute posthemorrhagic anemia; N17.9 Acute kidney failure, unspecified; W19.XXXA Unspecified fall, initial encounter; I10 Essential (primary) hypertension; F03.90 Unspecified dementia, unspecified severity, without behavioral disturbance, psychotic disturbance, mood disturbance, and anxiety; S50.02XA Contusion of left elbow, initial encounter; E86.0 Dehydration; R55 Syncope and collapse; I25.10 Atherosclerotic heart disease of native coronary artery without angina pectoris; F41.9 Anxiety disorder, unspecified; Z87.891 Personal history of nicotine dependence

== ENCOUNTER 2019-05-15 15:05 | Inpatient (IN) | payer MEDICARE, BC ==
[~2019-05-15] VITALS: Ht 170.2 cm; Wt 63.5 kg
--- NOTE | ~2019-05-15 | RHP ---
PATIENT: BRIAN FONTENOT MEDICAL RECORD: [id number] ACCOUNT: [id number] LOCATION:[id number] : [birth year] ADMISSION DATE: 05/15/19 REHABILITATION HISTORY AND PHYSICAL EXAMINATION POST ADMISSION PHYSICIAN EXAMINATION ADMITTING DIAGNOSIS: Hip fracture. HISTORY OF PRESENT ILLNESS: The patient is an 88-year-old female patient who presented to Emergency Room after a fall from standing position and complained of left elbow, right hip pain and unable to bear weight. Her right lower extremity was shortened and externally rotated. She got a history of dementia, chronic syncope, arthritis, former tobacco use and anxiety. The patient had x-rays of her hip showing an acute subcapital right hip fracture. X-rays of her left elbow showed extensive postoperative and posttraumatic changes with no evidence of acute fracture or dislocation. She was seen by orthopedic surgery, had a right gema-hip arthroscopy due to the right displaced femoral neck fracture. She had been receiving PT during her stay. She needs to be monitored closely for increased confusion, her intake and output and also to make sure that her UTI clears up. She is also being monitored for sugar problems. The patient is on electrolyte protocol, she is on pain control. We will monitor lab values. She has got increased weakness. She has got decreased activity. She has got decreased range of motion, decreased strength, gait disturbance, limited safety awareness. She does have cues for equipment and low endurance, unsteady gait. She has got balance deficits. These are all barriers to her discharge home. She lives at home with her significant other, was completely independent with ADLs prior to this. Currently set up for max assist for ADLs, max assist for mobility. She and her family would like her to return home at her prior level of functioning or better. COMORBIDITIES: Include acute fall, got a history of acute blood loss anemia, acute kidney injury, acute dehydration. She has got a history of hyperglycemia in the setting of no history of diabetes. She has got dementia, arthritis, former tobacco use, anxiety, acute confusion and blood loss anemia. PAST MEDICAL HISTORY: Significant for dementia, hypertension, coronary artery disease, anxiety or tobacco use. PAST SURGICAL HISTORY: Includes hysterectomy, hip surgery, elbow surgery. ALLERGIES: No known drug allergies. CURRENT MEDICATIONS: Include Floranex 1 cap daily, she is on a multivitamin daily, nitrofurantoin 100 mg b.i.d. with meals, Protonix 40 mg daily. He is on Geodon 20 mg b.i.d., Colace 2 tabs at bedtime, polyethylene glycol 17 grams in 8 ounces of water daily, aspirin chewable 81 mg daily, Ativan 0.5 mg b.i.d. p.r.n., [place] 5/325 one tab q.4-6 hours, and Haldol injections as needed. HABITS: Does have a history of tobacco use. FAMILY HISTORY: Noncontributory. SOCIAL HISTORY: The patient hopes to return back home and get back to her prior level of function. HISTORY AND PHYSICAL [id number] BRIAN FONTENOT REVIEW OF SYSTEMS: GENERAL: Does complain of weakness. HEENT: She denies cold, cough, or congestion. CARDIOVASCULAR: Denies chest pain. PHYSICAL EXAMINATION: VITAL SIGNS: Stable, afebrile. GENERAL: An elderly female, in no acute distress upon exam. HEENT: Normocephalic and atraumatic. Mucosa moist. NECK: Supple without adenopathy. LUNGS: Clear at this time. No wheezing or rales. HEART: Regular rate and rhythm. No murmurs, rubs or gallops. ABDOMEN: Soft, benign, and nondistended. Positive bowel sounds times 4. EXTREMITIES: Postop area appears normal. NEUROLOGIC: Definitely has some dementia and also has decreased mentation. LABORATORY DATA: Her white count is 5.2, H&H of 10 and 33, and platelet count was 91. Her sodium 136, potassium 3.8, BUN and creatinine of 13 and 1.0 and blood sugar is noted to be 169. ASSESSMENT: An 88-year-old female patient admitted to the rehab with a working diagnosis of hip fracture and elevated blood sugars. The patient has potential to make improvement. We instituted the following multidisciplinary therapies including, but not limited to physical, occupational, respiratory, speech, nutritional services, prosthetics and orthotics. Given her complex medical condition and risks for more complications, rehabilitation services cannot be provided at a low level of care such as skilled nurse facility. PLAN: 1. Admit to [facility] for intensive inpatient therapy to include the following disciplines: A. Physical therapy to improve gait, all transfer skills and bed mobility to a modified independent level. B. Occupational therapy to a modified independent level. C. Case management to assist with discharge planning and placement options. D. Nutrition to assist with nutritional needs. E. Rehabilitation nursing to assist in monitoring the patient's underlying medical conditions and to assist with any type of bowel or bladder management. 2. The patient's current medication and medical care will be continued. 3. The patient will be placed on standard fall precautions. 4. The patient's estimated length of stay is approximately 7-10 days. 5. We will discuss the patient during care team staff meeting this week. We will watch her blood sugars closely and make a diagnosis of diabetes if necessary. 6. I am going to follow up with care team and case management today at lunch. TRANSINT:[id number] Voice Confirmation ID: [id number] DOCUMENT ID: [id number] DEMAR notes whether there has been none or any medical/functional change since admission: - No change since preadmission screen. DEMAR attests patient continues to be appropriate for IRF: HISTORY AND PHYSICAL [id number] BRAIN FONTENOT - Continues to be appropriate. TEX BRADLEY MD CC: [id number] DICTATION DATE: 05/16/19831 EEG TECH: 05/16/19922 ADM IN [facility] [address] [place] [address]
[2019-05-15] MEDS ORDERED: HALDOL5 MG/ML IM (16:30)
[2019-05-15] MEDS ORDERED: MACROBID100 MG PO (16:30)
[2019-05-15] MEDS ORDERED: ASPIRIN81 MG PO (16:30)
[2019-05-15] MEDS ORDERED: HYDROCODON-ACE1 EA10 PO (16:30)
[2019-05-15] MEDS ORDERED: Senokot-S Tablet PO (16:31)
[2019-05-15] MEDS ORDERED: GEODON20 MG PO (16:31)
[2019-05-15] MEDS ORDERED: MIRALAX17 GM PO (16:31)
[2019-05-15] MEDS ORDERED: MULTI-DAY VITAM1 TAB PO (16:31)
[2019-05-15] MEDS ORDERED: ATIVAN0.5 MG PO (16:31)
[2019-05-15] MEDS ORDERED: HYDROCODON-ACE1 EAC7 PO (16:31)
[2019-05-15] MEDS ORDERED: PROTONIX40 MG PO (16:31)
--- NOTE | 2019-05-15 19:45 | NUR ---
PATIENT RECEIVED CONFUSED WANTING TO GO HOME. PATIENT TOLD REASON WHY SHE IS HERE REPEATEDLY. VITAL SIGNS DONE. BED LOW. ALARM ON. CALL LIGHT WITHIN REACH. WILL CONTINUE TO MONITOR.
[2019-05-15 20:10] VITALS: BP 159/80
--- NOTE | 2019-05-15 20:57 | NUR ---
PATIENT CONTINUALLY TRYING TO GET UP, ALARM WORKING. PATIENT SON CALLED TO SIT WITH HER FOR PATIENT SAFETY. SON WILL BE HERE SOON POSSIBLE. PATIENT BESIDE THIS NURSE IN NURSES STATION UNTIL SON ARRIVES. WILL CONTINUE TO MONITOR.
--- NOTE | 2019-05-15 21:30 | NUR ---
PATIENT SON HERE. PATIENT SITTING & TALKING WITH HIM. WILL CONTINUE TO MONITOR.
[2019-05-15 21:47] VITALS: BMI 21.9
--- NOTE | 2019-05-15 22:15 | NUR ---
HALDOL 2MG GIVEN IM IN LEFT HIP R/T AGITATION. MEDICATION WAS THOUGHT TO BE SCANNED BUT AFTER REVIWING APR IT WAS NOT SHOWING UP ON APR. WILL NOTIFY PHARMACY WHEN THEY ARE HERE.
--- NOTE | 2019-05-16 04:01 | NUR ---
PATIENT EYES CLOSED. RESPIRATIONS 18 & EVEN. BED LOW. ALARM ON. CALL LIGHT WITHIN REACH. WILL CONTINUE TO MONITOR.
--- NOTE | 2019-05-16 04:38 | NUR ---
PATIENT GIVEN ATIVAN FOR ANXIETY. BED LOW. ALARM ON. CALL LIGHT WITHIN REACH. WILL CONTINUE TO MONITOR.
--- NOTE | 2019-05-16 06:04 | NUR ---
PATIENT AWAKE TRYING TO GET OUT OF BED. FOR PATIENT SAFETY SHE WAS PLACED IN RECLINER & ROLLED TO NURSES STATION. PATIENT GIVEN WATER & ORANGE JUICE.
[2019-05-16 06:09] LABS: BASOPHILS 0.2 % (0-2); EOSINOPHILS 3.7 % (0-7); HEMOGLOBIN 10.4 g/dL (12-16); IMMATURE GRANULOCYTES 0.4 % (0-5); LYMPHOCYTES 13.6 % (15-50); MCHC 31.5 g/dL (31.0-37.0); MCV 88.9 fL (80.0-100.0); MEAN PLATELET VOLUME 10.6 fL (7.4-10.4); MONOCYTES 8.7 % (2-11); NEUTROPHILS 73.4 % (40-80); PLATELET COUNT 91 10x3/uL (130-400); RBC 3.71 10x6/uL (4.00-5.40); RDW 15.7 % (11.5-14.5); WBC 5.2 10x3/uL (4.8-10.8)
--- NOTE | 2019-05-16 06:16 | NUR ---
PHARMACY NOTIFIED OF HALDOL GIVEN AND NOT SCANNED AT 2215 ON 05/15/19.
[2019-05-16 06:38] LABS: ANION GAP 17.7 mmol/L (8-16); CALCIUM 8.1 mg/dL (8.5-10.1); CARBON DIOXIDE 18.1 mmol/L (21.0-32.0); POTASSIUM - SERUM 3.8 mmol/L (3.5-5.1)
[2019-05-16 08:00] VITALS: BP 130/58
--- NOTE | 2019-05-16 08:00 | NUR ---
SHIFT ASSMT COMPLETED.SITTING UP IN CHAIR AT BREEDING TECHNICIAN D/T CALLING OUT AND CLIMBING OOB CONSTANTLY.REPEATS PHRASES VERY FREQUENTLY.
[2019-05-16 09:27] LABS: PLATELET ESTIMATE DECREASED
[2019-05-16 09:28] LABS: ROULEAUX OCC
--- NOTE | 2019-05-16 11:06 | NUR ---
PATIENT ADMITTED TO REHAB FROM ACUTE FLOOR. HER PCP IS DR. BLANCA CARTER. DME AT HOME IS A WHEELCHAIR AND A WALKER. SHE LIVES AT HOME WITH HER S/O AND HAS A CAREGIVER EVERY TUESDAY FOR BATHING AND ANY OTHER NEEDS. WILL CONTINUE TO FOLLOW WITH PATIENT.
--- NOTE | 2019-05-16 12:00 | NUR ---
UP IN CHAIR.MEAL GIVEN.CL IN REACH.CUED TO EAT.
[2019-05-16 13:02] VITALS: Ht 170.2 cm; Wt 63.5 kg
--- NOTE | 2019-05-16 13:35 | NUR ---
REQUIRED CUEING TO EAT.LOSES TRACK ON WHAT TO DO.REQUIRED BEING FED.WAS ABLE TO FOLLOW AT FIRST AND CONSUMED 25% OF MEAL.BUT REQUIRED BEING FED THE OTHER 25%.ASSISTED TO BED.ALARM ON.
--- NOTE | 2019-05-16 13:56 | NUR ---
CARE TEAM MEETING: PATIENT IS NEW TO UNIT AND WILL BE RA AT NEXT MEETING. WILL CONTINUE TO FOLLOW WITH PATIENT.
--- NOTE | 2019-05-16 13:59 | NUR ---
REMAINS NAPPING AT PRESENT.
--- NOTE | 2019-05-17 03:45 | NUR ---
PT CONTINUES TO GET OUT OF BED W/O ASSISTANCE, CALL LIGHT AND ALARMS IN PLACE
[2019-05-17 08:00] VITALS: BP 163/97
--- NOTE | 2019-05-17 08:00 | NUR ---
SITTING UP IN BED IN ROOM. ATE FEW BITES OF BREAKFAST BUT REFUSED ANY MORE. IS CONFUSED AND SLOW TO FOLLOW COMMANDS. BED ALARM IN PLACE AND PT IN SIGHT OF NURSING STATION.
--- NOTE | 2019-05-17 17:21 | NUR ---
SITTING UP IN BED IN ROOM FOR SUPPER. IS STILL CONFUSED AND NEEDS CONSTANT COAXING AND PROMPTS FOR TASKS. BED IN LOWEST POSITION, SIDE RAILS UP X2. CALL LIGHT IN REACH
[2019-05-17 19:35] VITALS: BP 143/82
--- NOTE | 2019-05-17 20:00 | NUR ---
PATIENT RECIEVED SITTING UP IN WHEELCHAIR. ASSESSMENT & VITAL SIGNS DONE. SON IN ROOM. WILL CONTINUE TO MONITOR.
--- NOTE | 2019-05-18 02:06 | NUR ---
YELLING OUT AND STATES SHE IS HURTING. MEDICATED FOR PAIN AND RESTLESSNESS. SEE MAR. RESPIRATIONS UNLABORED. CALL LIGHT IN REACH.
--- NOTE | 2019-05-18 03:47 | NUR ---
I have reviewed this patient and I concur with the Shift Assessment completed by the Licensed Practical Nurse today this shift.
--- NOTE | 2019-05-18 03:52 | NUR ---
PATIENT AWAKE BANGING CALL LIGHT & SHOE ON SIDETABLE, YELLING "HELP ME. HELP ME" PATIENT CONSISTANTLY ASKING "WHY AM I HERE?" PATIENT QUIET FOR FEW MINUTES & THEN YELLS OUT. PATIENT NOT TRYING TO GET OUT OF BED AT THIS TIME. BED LOW. WILL CONTINUE TO MONITOR.
--- NOTE | 2019-05-18 05:19 | NUR ---
PATIENT TOILETED MOD ASSIST WITH GAIT BELT. VOID ONLY. BED LOW. ALARM ON. CALL LIGHT WITHIN REACH. WILL CONTINUE TO MONITOR.
[2019-05-18 05:27] LABS: BASOPHILS 0.4 % (0-2); EOSINOPHILS 4.2 % (0-7); HEMATOCRIT 29.8 % (36.0-48.0); HEMOGLOBIN 9.4 g/dL (12-16); IMMATURE GRANULOCYTES 0.8 % (0-5); LYMPHOCYTES 19.7 % (15-50); MCH 27.6 pg (26.0-34.0); MCHC 31.5 g/dL (31.0-37.0); MCV 87.6 fL (80.0-100.0); MONOCYTES 11.9 % (2-11); RDW 15.7 % (11.5-14.5)
[2019-05-18 05:38] LABS: ANION GAP 9.9 mmol/L (8-16); CALCIUM 8.3 mg/dL (8.5-10.1); CREATININE - SERUM 0.9 mg/dL (0.6-1.3); PLATELET COUNT 142 10x3/uL (130-400); POTASSIUM - SERUM 3.8 mmol/L (3.5-5.1)
[2019-05-18 05:42] LABS: CARBON DIOXIDE 27.9 mmol/L (21.0-32.0)
--- NOTE | 2019-05-18 06:18 | NUR ---
DR. METCALF HERE. SPOKE WITH PATIENT & . NO NEW ORDERS AT THIS TIME.
[2019-05-18 08:00] VITALS: BP 156/80
--- NOTE | 2019-05-18 08:28 | NUR ---
NUTRITION F/U CHART REVIEWED, PT CURRENTLY SLEEPING. REQUIRES ASSIST WITH MEALS. EATING ~25% OF MOST RECENT MEAL. 100% ENSURE. WILL CONTINUE TO PROVIDE DIET/ENSURE. MONITOR PO INTAKE. RD FOLLOWING
--- NOTE | 2019-05-18 09:00 | NUR ---
PATIENT IS VERY CONFUSED. HITTING AT STAFF. STATES SHE DOES NOT WANT TO GET OUT OF BED. BED ALARM ON. CALL LIGHT WITHIN REACH. WILL CONTINUE WITH PLAN OF CARE
--- NOTE | 2019-05-18 10:10 | NUR ---
PATIENT IN REHAB ROOM. WORKING WITH PHYSICAL THERAPIST.
--- NOTE | 2019-05-18 14:24 | NUR ---
PRN ATIVAN GIVEN FOR AGITATION. PATIENT TRYING TO CLIMB OUT OF BED
--- NOTE | 2019-05-18 14:41 | NUR ---
OCCUPATIONAL THERAPIST IN ROOM. GIVING PATIENT A SHOWER.
[2019-05-18 20:00] VITALS: BP 150/75
--- NOTE | 2019-05-18 20:05 | NUR ---
PATIENT RECEIVED LAYING IN BED. SON & BOYFRIEND AT BEDSIDE. CALL LIGHT WITHIN REACH. WILL CONTINUE TO MONITOR.
--- NOTE | 2019-05-18 23:02 | NUR ---
PATIENT AWAKE YELLING OUT. AGRESSIVE LOOKING FOR SON. PATIENT GIVEN HALDOL PER ORDER TO RIGHT UPPER QUADRANT OF HIP. BED LOW. ALARM ON. CALL LIGHT WITHIN REACH. WILL CONTINUE TO MONITOR.
--- NOTE | 2019-05-18 23:30 | NUR ---
HALDOL NOT EFFECTIVE. PATIENT YELLING OUT. PATIENT TAKEN TO BATHROOM. VOID ONLY. PATIENT RETURNED TO BED. BED LOW. CALL LIGHT WITHIN REACH. ALARM ON. WILL CONTINUE TO MONITOR.
--- NOTE | 2019-05-19 01:40 | NUR ---
PATIENT YELLING. THIS NURSE WENT IN ROOM PATIENT. PATIENT TAKEN TO TOILET IN WHEELCHAIR. VOID ONLY. PATIENT RETURNED TO BED. ALARM ON. CALL LIGHTN WITHIN REACH. WILL CONTINUE TO MONITOR.
--- NOTE | 2019-05-19 03:24 | NUR ---
I have reviewed this patient and I concur with the Shift Assessment completed by the Licensed Practical Nurse today this shift.
[2019-05-19 08:00] VITALS: BP 168/85
--- NOTE | 2019-05-19 08:00 | NUR ---
SHIFT ASSMT COMPLETED.
--- NOTE | 2019-05-19 17:45 | NUR ---
ATE ENTIRE SUPPER WITH CUEING FROM FAMILY.
--- NOTE | 2019-05-19 19:30 | NUR ---
PT UP TO TOILET KEEP IN WC RESTLESS CONTINUES TO CLIMB OUT OF BED FLUIDS AND CALL LIGHT WITHIN REACH FALL PRECAUTIONS IN PLACE
--- NOTE | 2019-05-20 00:31 | NUR ---
PT CONTINUES TO GET OUT OF BED, CALLS OUT FOR CAITLYN, TOILETED, WARM SHOWER GIVEN, C/O PAIN NORCO GIVEN, GETTING AGGITATED ATIVAN GIVEN, PLACED IN CLEAN BED WITH WARM BLANKETS, FLUIDS AND CALL LIGHT WITHIN REACH, FALL PRECAUTIONS IN PLACE, PT CONTINUES TO CALL OUT, THIS NURSE SITTING BY DOOR AT THIS TIME
--- NOTE | 2019-05-20 00:42 | NUR ---
PT IN BED, AROUSES EASILY TO VOICE, CLEANED PT AND CHANGED INCONTINENT PADS, FLUIDS AND CALL LIGHT WITHIN REACH, NO OTHER NEEDS NOTED, FALL PRECAUTIONS IN PLACE
--- NOTE | 2019-05-20 01:12 | NUR ---
TOILETED PT AND PLACED BACK TO BED
--- NOTE | 2019-05-20 02:15 | NUR ---
PT CONTINUES TO CLIMB OUT OF BED, EXTREME FALL RISK, UNABLE TO TAKE CARE OF OTHER PTS, PLACED PT IN GERICHAIR AT NURSES DESK TO PREVENT INJURY OF PT
[2019-05-20 03:40] VITALS: BP 170/85
--- NOTE | 2019-05-20 07:30 | NUR ---
YELLING FOR HELP.TAKEN TO BATHROOM.SITTING UP IN WC.BREAKFAST GIVEN.STATES SHE CAN'T EAT.STATES SHE IS GOING TO FALL OUT.STATES SHE NEEDS TO LAY DOWN.FEW BITES FED.DRANK 100% ENSURE.SITTING AT DESK.
[2019-05-20 08:00] VITALS: BP 106/69
--- NOTE | 2019-05-20 08:15 | NUR ---
TAKEN BACK TO ROOM TO LAY DOWN.
--- NOTE | 2019-05-20 08:30 | NUR ---
BACK UP OOB.ALARM SOUNDING.YELLING HELP.PLACED IN WC.
--- NOTE | 2019-05-20 08:47 | NUR ---
SITTING UP IN WC YELLING TO GO BACK TO BED.HALDOL 2MG GIVEN IM RT VASTUS LATERALIS.
--- NOTE | 2019-05-20 09:15 | NUR ---
PLACED BACK IN BED.STATES WILL STAY IN BED IF SHE CAN LAY DOWN.
--- NOTE | 2019-05-20 09:30 | NUR ---
FOUND WITH GOWN REMOVED STANDING UP AT BEDSIDE,BED ALARM GOING OFF.PLACED BACKC IN BED AND DRESSED.SON GENE NOTIFIED FOR SAFETY ISSUES WITH PT NOT STAYING IN BED AND RISK OF FALLING.
--- NOTE | 2019-05-20 10:15 | NUR ---
CONSULT PLACED FOR ;DEMENTIA,YELLING OUT.REPETITIVE BEHAVIOR;WANTING UP AND DOWN.
--- NOTE | 2019-05-20 11:05 | NUR ---
YELLING OUT CLIMBED THROUGH BED RAILS AND STANDING UP ON FLOOR YELLING HELP.PLACED IN CHAIR,TAKEN TO BATHROOM.SITTING AT DESK
--- NOTE | 2019-05-20 11:29 | NUR ---
YELLING AT DESK TO GO BACK TO BED.
--- NOTE | 2019-05-20 12:50 | NUR ---
WHILE UP IN WC PT ATE 25% + ENSURE.TAKEN TO BED TO LAY DOWN.
--- NOTE | 2019-05-20 13:00 | NUR ---
AWAKE AND YELLING.
--- NOTE | 2019-05-20 13:50 | NUR ---
AWAKE AND YELLING.
--- NOTE | 2019-05-20 15:40 | NUR ---
AUGUSTINE RED APN FOR HERE FOR CONSULT.
--- NOTE | 2019-05-20 19:00 | NUR ---
PT IN BED SLEEPING, FLUIDS/CALL LIGHT WITHIN REACH,FALL PRECAUTIONS IN PLACE AND WORKING, NO IMMEDIATE NEEDS NOTED
--- NOTE | 2019-05-20 20:40 | NUR ---
PT RECIEVED ATIVAN FOR RESTLESSNESS AND PAIN MEDICATION FOR GENERALIZED PAIN AT 2030
[2019-05-21 00:40] VITALS: BP 190/104
[2019-05-21 08:00] VITALS: BP 144/82
--- NOTE | 2019-05-21 10:38 | NUR ---
Nutrition Follow Up: Comments: Met with patient this am. She was asleep and had not touched her breakfast. Patient has not been eating well. PO intake avg of 31% from the past 9 meals. No constipation, last BM on 05/18. No new labs since 05/17. Diet: Mechanical Soft, Ensure with Meals Wt: 140 lbs on 05/15. No new wt Signifiant Meds: MVI, Protonix, Senna, Miralax Encourage PO intake Feeding assist Continue current diet and ensure as tolerated Clinical Dietitian to continue following and monitoring pt DHS
--- NOTE | 2019-05-21 11:02 | NUR ---
DUE TO CHANGE IN BEHAVIOR PATIENT DISCHARGED FROM REHAB AND ADMITTED TO [facility].
--- NOTE | 2019-05-21 11:20 | NUR ---
VERY CONFUSED, DISORGANIZED BEHAVIORS. KEEPS GETTING OUT OF BED AND WC. REFUSED TO EAT BREAKFAST. DR BRADLEY ON FLOOR AND GAVE ORDER FOR PSYCH PLACEMENT ON [facility] IF PT MEETS CRITERIA. [facility] NOTIFIED AND PT WAS ACCEPTED. TOOK ALL PT'S PERSONAL BELONGINGS WITH HER.
[2019-05-21] MEDS ORDERED: FLORAJEN3 CAPS460 MG PO (14:20)
[2019-05-21] MEDS ORDERED: MACROBID100 MG PO (14:21)
[2019-05-21] MEDS ORDERED: HYDROCODON-ACE1 EAC7 PO (14:23)
[2019-05-21] MEDS ORDERED: ZOFRAN ODT4 MG/UDTAB PO (14:25)
== END 2019-05-21 13:50 | disposition short-term general hospital (02) | DRG 536 ==
LOC: D.REHAB 15:05
PROVIDERS: ADMIT Emergency Medicine; ATTEND Emergency Medicine
DX: S72.001A Fracture of unspecified part of neck of right femur, initial encounter for closed fracture (principal); D62 Acute posthemorrhagic anemia; N17.9 Acute kidney failure, unspecified; F03.90 Unspecified dementia, unspecified severity, without behavioral disturbance, psychotic disturbance, mood disturbance, and anxiety; F41.9 Anxiety disorder, unspecified; I10 Essential (primary) hypertension; I25.10 Atherosclerotic heart disease of native coronary artery without angina pectoris; E86.0 Dehydration; W18.30XA Fall on same level, unspecified, initial encounter; R55 Syncope and collapse; Z87.891 Personal history of nicotine dependence

== ENCOUNTER 2019-05-21 11:12 | Inpatient (IN) | payer MEDICARE, BC ==
[~2019-05-21] VITALS: Ht 167.6 cm; Wt 60.6 kg
[~2019-05-21 11:12] MED LIST changes: +HALDOL5 MG/ML IM; +HYDROCODON-ACE1 EA10 PO; +HYDROCODON-ACE1 EAC7 PO; +MACROBID100 MG PO; +MIRALAX17 GM PO; +PROTONIX40 MG PO; +Senokot-S Tablet PO
--- NOTE | 2019-05-21 13:00 | NUR ---
NEW ADMIT TO DOCTOR ROSA ON NURSING HOME FROM [facility] FOR INCREASED CONFUSION, POOR SHORT TERM MEMORY, AGITATED, HITTING STAFF, AND NOT REDIRECTING. PATIENT TRANSPORTED TO NURSING HOME VIA WHEELCHAIR. UPON ARRIVAL TO NURSING HOME, PATIENT WAS RESTLESS, ANXIOUS, AND AGITATED. RESISTIVE WITH CARE AND BECOMES COMBATIVE. PATIENT YELLING OUT. CONTINUOUSLY ATTEMPTING TO GET UP WITHOUT ASSISTANCE. UNABLE TO REDIRECT. CONSENTS TO TREAT RECEIVED FROM JON FONTENOT, GOYO. CODE STATUS DISCUSSED WITH JON FONTENOT AND PATIENT IS A MED CODE ONLY. CODE WORD OF 7575 GIVEN TO SON.
[2019-05-21 13:35] VITALS: BP 116/50
[2019-05-21 14:02] LABS: HEMATOCRIT 30.7 % (36.0-48.0); HEMOGLOBIN 9.4 g/dL (12-16); LYMPHOCYTES 14.4 % (15-50); MCH 27.4 pg (26.0-34.0); MCHC 30.6 g/dL (31.0-37.0); MCV 89.5 fL (80.0-100.0); MEAN PLATELET VOLUME 9.8 fL (7.4-10.4); NEUTROPHILS 73.1 % (40-80); RBC 3.43 10x6/uL (4.00-5.40); RDW 15.4 % (11.5-14.5); WBC 4.7 10x3/uL (4.8-10.8)
--- NOTE | 2019-05-21 14:10 | NUR ---
PT CONTINUES TO BE RESTLESS AND AGGITATED, NOT ABLE TO CALM OR REASSURE HER. GIVEN PRN ORDERED.
[2019-05-21 14:11] LABS: PLATELET COUNT 183 10x3/uL (130-400)
[2019-05-21] MEDS ORDERED: FLORAJEN3 CAPS460 MG PO (14:20)
[2019-05-21] MEDS ORDERED: MACROBID100 MG PO (14:21)
[2019-05-21] MEDS ORDERED: HYDROCODON-ACE1 EAC7 PO (14:23)
[2019-05-21] MEDS ORDERED: ZOFRAN ODT4 MG/UDTAB PO (14:25)
[2019-05-21 14:41] LABS: ALBUMIN 2.4 g/dL (3.4-5.0); ANION GAP 11.3 mmol/L (8-16); BILIRUBIN - TOTAL 0.79 mg/dL (0.2-1.3); CALCIUM 8.1 mg/dL (8.5-10.1); CHOL - HDL RATIO 4.8 ratio (2.3-4.1); CREATININE - SERUM 1.2 mg/dL (0.6-1.3); LDL-HDL RATIO 2.9 ratio (1.5-3.5); POTASSIUM - SERUM 4.3 mmol/L (3.5-5.1); PROTEIN - SERUM 5.6 g/dL (6.4-8.2); THYROID STIMULATING HORMONE 1.91 uIU/mL (0.36-3.74)
--- NOTE | 2019-05-21 15:40 | NUR ---
PT YELLING OUT "HELP ME", REORIENTED PT AND TRIED TO REASSURE HER. PT CONTINUED TO BE VERY RESTLESS AND TRYING TO CLIMB OUT OF CHAIR. PRN GIVEN ORDERED.
[2019-05-21 17:17] VITALS: BP 116/50; BMI 22.8
--- NOTE | 2019-05-21 22:29 | NUR ---
B.) PT IS ALERT AND ORIENTED TO SELF ONLY. SHE HAS POOR INSIGHT INTO HER SITUATION. SHE C/O BACK PAIN. SHE HAS NO SHORT TERM MEMORY. SHE IS CONSTANTLY ATTEMPTING TO GET UP AND AMBULATE WITHOUT ASSIST. REDRESSES RIGHT HIP. HIP INCISION IS FREE FROM S&S OF INFECTION. I.) PROVIDED PM MEDICATIONS. ADMINISTERED PRN NORCO PO. REDIRECT OFTEN. R.) COMPLIANT WITH ALL MEDICATIONS. DIFFICULT TO REDIRECT AT TIMES. P.) WILL CONTINUE TO MONITOR.
--- NOTE | 2019-05-21 23:26 | NUR ---
PT RESTLESS IN BED REQUESTED PRN ATIVAN 0.5 MG IM. WILL CONTINUE TO MONITOR.
--- NOTE | 2019-05-22 00:03 | NUR ---
PATIENT GIVEN HALDOL 2 MG IM FOR ANXIETY.
--- NOTE | 2019-05-22 02:26 | NUR ---
PATIENT GIVEN ATIVAN 0.5 MG IM AND HALDOL 2 MG IM FOR ANXIETY.
[2019-05-22 06:43] VITALS: BP 103/74
[2019-05-22 07:10] LABS: RAPID PLASMA REAGIN Non Reactive (Non Reactive)
--- NOTE | 2019-05-22 08:45 | NUR ---
RECEIVED IN HALLWAY OUTSIDE OF NURSES STATION. RESTLESS, AGITATED, AND ANXIOUS. CONTINUOUSLY ATTEMPTING TO GET UP WITHOUT ASSISTANCE. LATRICE ALARM SOUNDING. REDIRECT AND REORIENT NEEDED. EATING BREAKFAST AT THIS TIME. CONTINUE PLAN OF CARE.
--- NOTE | 2019-05-22 14:43 | PSY ---
PATIENT NAME:BRIAN FONTENOT MEDICAL RECORD: [id number] : [birth year] LOCATION:[facility] ADMISSION DATE: 05/21/19 ACCOUNT: [id number] PSYCHIATRIC EVALUATION DATE OF EVALUATION: 05/21/19 IDENTIFYING DATA: The patient is 88 years old and she is admitted to the hospital on a voluntary basis. CHIEF COMPLAINT: Agitation and combativeness. HISTORY OF PRESENT ILLNESS: The patient is a very nice elderly woman who is clearly quite confused. She apparently recently broke her hip and had orthopedic surgery on her right hip about a week ago. She was subsequently transferred to rehab for physical therapy, but was too confused and agitated to participate and for that reason sent to the behavioral unit. On interview, she is very nice, cooperative, and interacts appropriately, but really does not provide very much in the way of useful information. It is clear that she is quite confused. PAST MEDICAL HISTORY: Significant for coronary artery disease and hypertension. PAST PSYCHIATRIC HISTORY: Significant for preexisting history of dementia. FAMILY HISTORY: Unknown. ALLERGIES: No known drug allergies. CURRENT MEDICATIONS: Include multivitamins, Protonix, MiraLax, Geodon, aspirin, Macrobid, probiotic, Zofran, and Coleman. SOCIAL HISTORY: The patient is single. She apparently was living with her son, I believe prior to the hip fracture. She denies a history of drug or alcohol use. She does report that she smokes. Again, her information is of questionable reliability. She says she is single, but I do not know if that means or and of course it may also be incorrect. MENTAL STATUS EXAMINATION: The patient is awake, alert and oriented to person only. Her mood is anxious. Her affect is constricted. Thought processes are circumstantial. Memory, concentration, and abstraction abilities are impaired. She denies that she would seek to harm herself or others. She denies overt psychotic symptoms. ASSETS: Supportive family members. LIABILITIES: Limited insight. DIAGNOSTIC IMPRESSION: AXIS I: Major neurocognitive disorder of the Alzheimer's type with behavioral disturbances. AXIS II: None. AXIS III: Status post hip fracture, coronary artery disease and hypertension. AXIS IV: Moderate. AXIS V: Global assessment of functioning is 30. PLAN: At this time, the patient is admitted to the hospital secondary to aggressive behavior and confusion associated with a dementing illness. She will be treated with both mood stabilizing and memory enhancing medications. Her long-term prognosis is guarded. TRANSINT:[id number] Voice Confirmation ID: [id number] DOCUMENT ID: [id number] JORGE ROSA MD at 1443 CC: [id number] DICTATION DATE: 05/21/19 1626 TENSION MACHINE OPERATOR: 05/21/19 1652 ADM IN [place] [id number] [place] [address]
[2019-05-22 14:52] VITALS: Ht 167.6 cm; Wt 60.6 kg
--- NOTE | 2019-05-22 16:55 | NUR ---
PATIENT IN DINING ROOM VISITING WITH SON. JACKAROO HEARD PATIENT MAKING A GURGLING NOISE AND IMMEDIATELY ENTERED THE DINING ROOM. UPON ENTERING D/R, JACKAROO SAW SON HOLDING PATIENT'S HEAD UP AND PATIENT WAS GURGLING SALIVA FROM HER MOUTH. JACKAROO IMMEDIATELY NOTIFIED THIS NURSE. UPON ASSESSMENT, PATIENT WAS POORLY RESPONSIVE AND HAD NO RESPONSE TO STERNAL RUB. SKIN WAS COOL, CLAMMY, AND PATIENT EXHIBITED CIRCUMORAL CYANOSIS. HR WAS 97 BPM AND WEAK PER AUSCULTAION. AT THIS POINT, A RAPID RESPONSE WAS CALLED AND VITAL SIGNS WERE MEASURED. VITAL SIGNS FOLLOWS: T. 98.2, B/P 105/63, P 97, R 18, SPO2 97%. FSBS 264 AT THIS POINT, THE RAPID RESPONSE TEAM ARRIVED AND MANAGED CARE. SON SEEMED QUITE BELLIGERANT AND DEMANDING THAT CERTAIN MEDS NOT BE GIVEN ORDERED.
[2019-05-22 20:26] VITALS: BP 130/68
--- NOTE | 2019-05-22 22:19 | NUR ---
B.) PT IS ALERT AND ORIENTED TO SELF ONLY. SHE IS RECEIVED IN THE DAYROOM IN A WHEELCHAIR. SHE IS QUIET BUT ANSWERS WHEN SPOKEN TO. SHE IS CALM WITH STAFF BUT CANNOT FOLLOW DIRECTIONS. I.) PROVIDED PM MEDICATIONS PRESCRIBED. REDIRECT OFTEN. R.) COMPLIANT WITH ALL MEDICATIONS. DIFFICULT TO REDIRECT. P.) WILL CONTINUE TO MONITOR.
[2019-05-23 09:48] VITALS: BP 96/59
--- NOTE | 2019-05-23 14:06 | PN ---
PATIENT:BRIAN FONTENOT MEDICAL RECORD: [id number] LOCATION:[facility] ADMISSION DATE: 05/21/19 PROGRESS NOTE DATE OF SERVICE: 05/22/2019 SUBJECTIVE: The patient's case was discussed with staff. She has no new complaint. OBJECTIVE: The patient is in good behavioral control. She is limited in her insight. She is generally tolerating her medicines well, but unfortunately was p.r.n. last night twice. ASSESSMENT: Dementia. PLAN: Current medicines have been reviewed. I am going to start her on a scheduled dose of hydrocodone secondary to her agitation and the suspicion that she is in significant pain. TRANSINT:[id number] Voice Confirmation ID: [id number] DOCUMENT ID: [id number] JORGE ROSA MD at 1406 CC: [id number] DICTATION DATE: 05/22/19 1505 MAMMAL CONTROL AGENT: 05/22/19 1520 ADM IN [place] [id number] [place] [address]
--- NOTE | 2019-05-23 17:37 | NUR ---
PT IS SITTING IN W/C IN DAYAREA. PT IS ALERT TO SELF ONLY WTIH CONFUSED NOTED. PT IS COMPLIANT WITH MEDS, VITALS AND ASSESSMENTS. REDIRECT AND REORIENT NEEDED. PT IS HARD TO REDIRECT AT TIMES. MONITOR FOR FALL RISK. CHAIR ALARM IN PLACE AND ACTIVE. WILL CONT PLAN OF CARE. PT CAN NOT MAKE NEEDS KNOWN. PT CONTS TO AMBULATE WITHOUT ASSISTANCE.
[2019-05-23 21:40] VITALS: BP 119/58
--- NOTE | 2019-05-24 02:00 | NUR ---
B)RECEIVED PATIENT SITTING IN A WHEELCHAIR AT THE NURSES STATION. CONFUSED AND DISORIENTED. SITS WITH HEAD HANGING DOWN AND TALKING TO SELF. NO INTERACTION WITH STAFF OR PEERS. I)ADMINISTER MEDS AND MONITOR COMPLIANCE. REORIENT NEEDED. R)MED COMPLIANT. POOR REORIENTATION DUE TO IMPAIRED ABILITY TO COMPREHEND, PROCESS AND RETAIN INFORMATION. P)CONTINUE POC AND PROVIDE SAFE ENVIRONMENT.
[2019-05-24 08:01] VITALS: BP 104/58
--- NOTE | 2019-05-24 09:12 | NUR ---
The patient is awake and she is restless, she keeps asking "Am I going home?, Can I go home?" She is very confused. She has poor insight into her situation. She is yelling out for "Elana" She has been taken to the toilet d/t loose BM this am. Provide prescribed meds. The patient is restless and keeps aking to leave. Provide prescribed meds. The patient is compliant with meds. Continue POC.
--- NOTE | 2019-05-24 10:19 | NUR ---
Team Treament Review Diet: Regular Diet PO intake: 19% avg x 9 meals Pt refuses snacks Pt can feed self Admit Wt (05/01): 96 lbs Wt (05/19): 101 lbs BM: x 3 on 05/22; BM X 1 on 05/23 (Large) Significant Meds: Megace, MVI, Protonix Significant Labs Recorded 05/20: BUN-23(H), HDL-29(L), Albumin-2.4(L), A1C-7.0, Calcium-8.1(L) Continue megace as tolerated Continue current diet as tolerated Encourage po intake Recommend nutritional supplements with meals Will continue to monitor closely. Will monitor po intake, diet changes, nutrition-related labs/meds, BM frequency, wt changes, and skin integrity Clinical Dietitian Following
--- NOTE | 2019-05-24 10:30 | NUR ---
Team Treatement Review: Diet: Regular Diet Supplement: Ensure TID PO intake: 19% avg x 9 meals Pt refuses snacks Pt can feed self Lg BM x 1 on 05/23 Wt: 140 lbs on 05/15 Wt: 141 lbs on 05/21 Significant Meds: Megace, MVI, Protonix Significant Labs (Recorded on 05/20): BUN- 23(H), HDL- 29(L), Albumin- 2.4(L), A1C- 7.0, Calcium- 8.1(L) Continue current diet as tolerated Continue Ensure TID Continue Megace as tolerated Encourage PO intake Will continue to monitor closely. Will monitor po intake, diet changes, nutrition-related labs/meds, BM frequency, wt changes, and skin integrity Clinical Dietitian Following
--- NOTE | 2019-05-24 16:18 | PN ---
PATIENT:BRIAN FONTENOT MEDICAL RECORD: [id number] LOCATION:[facility] ADMISSION DATE: 05/21/19 PROGRESS NOTE DATE OF SERVICE: 05/23/2019 SUBJECTIVE: The patient's case was discussed with staff. She has no new complaint. OBJECTIVE: The patient is poorly oriented. She does seem a little sedated, but easily arousable and interactive. Although, she speaks with me much of which she says makes no real sense. Unfortunately, she is still not eating very well. ASSESSMENT: Dementia. PLAN: Current medicines have been reviewed and will be maintained. Her long-term prognosis is guarded. Supportive and educational interventions were made. She will be maintained on current medicines. Her Klonopin will be discontinued. TRANSINT:[id number] Voice Confirmation ID: [id number] DOCUMENT ID: [id number] JORGE ROSA MD at 1618 CC: [id number] DICTATION DATE: 05/23/19 1433 HARDWOOD FINISHER: 05/23/19 1628 ADM IN [place] [id number] [place] [address]
[2019-05-24 20:46] VITALS: BP 129/81
--- NOTE | 2019-05-24 21:55 | NUR ---
PATIENT IS VERY CONFUSED, MEDS HAVE TO BE CRUSHED, CAN MAKE SIMPLE NEEDS KNOWN, NEEDS MOD-TOTAL ASSIST WITH ADL'S, NO ADVERSE REACTION NOTED. WILL FOLLOW POC
[2019-05-25 08:22] VITALS: BP 109/62
--- NOTE | 2019-05-25 11:21 | NUR ---
The patient is confused, she is oriented to herself only, she yells out "Help, help, help." She is yelling out for her glasses, but they are on her face. She is yelling for "Virgilio" Provide prescribed meds. The patient is compliant with meds. Continue POC.
--- NOTE | 2019-05-25 15:23 | NUR ---
The patient continues to yell and holler. Ambulated the patient, provided a drink and snack, the patient continues to yell. She denies the need to use the toilet.
--- NOTE | 2019-05-25 15:27 | NUR ---
Provided the patient Ativan 0.5 mg po, see MAR.
--- NOTE | 2019-05-25 16:00 | NUR ---
The patient is not yelling, but she is banging on the table. Will monitor.
[2019-05-25 20:00] VITALS: BP 133/79
--- NOTE | 2019-05-26 02:35 | NUR ---
B) Patient is alert and oriented to self, attention seeking at times, demanding at times, I) Administered scheduled medications as ordered, redirected as needed R) Medication compliant, sleeping quietly now P) Continue plan of care.
[2019-05-26 11:10] VITALS: BP 97/54
--- NOTE | 2019-05-26 14:07 | NUR ---
YELLING, RAPIDLY ESCALATING, UNABLE TO RE-DIRECT, ATIVAN 0.5 MG AND HALDOL 2 MG ADMIN IM, RIGHT DELTOID.
--- NOTE | 2019-05-26 14:08 | PN ---
PATIENT:BRIAN FONTENOT MEDICAL RECORD: [id number] LOCATION:[facility] ADMISSION DATE: 05/21/19 PROGRESS NOTE DATE OF SERVICE: 05/25/2019 DATE OF SERVICE: 05/25/2019 SUBJECTIVE: The patient's case was discussed with staff. The patient does continue to perseverate and is difficult to redirect. Staff report that there has been somewhat of a decrease in agitation as she is not screaming as much. OBJECTIVE: The patient is alert to person. She is disoriented to place, time and situation. Her speech is soft, low tone, low volume. Her associations are loose with poverty of thought. Her eye contact is fair. Her judgment and insight is impaired. Impulsivity is high. Her mood is anxious, easily agitated. Her affect is flat, narrow in range. No psychomotor agitation. Anxiety, mild. Memory poor for remote and recent events. The patient does not appear to be attending to either visual or auditory hallucinations. ASSESSMENT: No change in diagnosis. PLAN: To continue to monitor her tolerance to medications and adjust doses to minimize her agitation, increase her memory, properties in her decrease of her behaviors and prepare her for discharge. It appears that there is a tentative plan to place the patient with her son. Dictated By: Blanquita Lomeli APN I have interviewed/examined the above patient and agree with these documented findings. TRANSINT:[id number] Voice Confirmation ID: [id number] DOCUMENT ID: [id number] JORGE ROSA MD at 1454 at 1408 CC: [id number] DICTATION DATE: 05/25/19 1244 PIPE INSULATOR HELPER: 05/25/19 1328 ADM IN [facility] [address] [place] [address]
--- NOTE | 2019-05-26 16:39 | NUR ---
ALERT, CALM, CONFUSED, MED COMPLIANT, COOPERATIVE WITH STAFF. HOWEVER, PT DID HAVE SOME ANXIETY EARLIER THIS SHIFT, REQUIRING A PRN OF ATIVAN AND HALDOL. CONT PLAN OF CARE DIRECTED.
[2019-05-26 20:00] VITALS: BP 126/71
--- NOTE | 2019-05-26 21:47 | NUR ---
B.) PT IS ALERT AND ORIENTED TO SELF ONLY. SHE IS RECEIVED IN THE DAYROOM IN HER WHEELCHAIR. SHE IS CALM, COOPERATIVE, PLEASANT WITH STAFF. SHE IS ABLE TO ASSIST WITH TRANSFER AND ABLE TO MAKE HER NEEDS KNOWN. I.) PROVIDED PM MEDICATIONS PRESCRIBED. REDIRECT OFTEN. R.) COMPLIANT WITH ALL MEDICATIONS. DIFFICULT TO REDIRECT AT TIMES. P.) CONTINUE TO MONITOR.
[2019-05-27 11:05] VITALS: BP 140/70
--- NOTE | 2019-05-27 14:15 | PN ---
PATIENT:BRIAN FONTENOT MEDICAL RECORD: [id number] LOCATION:[facility] ADMISSION DATE: 05/21/19 PROGRESS NOTE DATE OF SERVICE: 05/26/2019 DATE OF SERVICE: 05/26/2019 SUBJECTIVE: The patient's case was discussed with staff. The patient does continue to perseverate and is difficult to redirect. OBJECTIVE: The patient's general appearance is appropriate. Her orientation is alert to person, disoriented to place, time and situation. Her speech is soft, low tone; however, her voice does escalate with requests. Her associations are loose. Her eye contact is poor. Her judgment and insight is impaired. She does have poverty of thought. Her mood is depressed and anxious, easily agitated. Her affect is flat, narrow in range. The patient no signs of psychomotor retardation or agitation. Her anxiety is moderate, escalates to severe. Her memory is poor for remote and recent events. The patient does not appear to be attending to visual or auditory hallucinations. ASSESSMENT: No change in diagnosis. PLAN: We will continue to monitor her tolerance to medications and adjust doses to minimize her agitation, increase her memory and stabilize her mood. Dictated By: Blanquita Lomeli APN I have interviewed/examined the above patient and agree with these documented findings. TRANSINT:[id number] Voice Confirmation ID: [id number] DOCUMENT ID: [id number] JORGE ROSA MD at 1454 at 1415 CC: [id number] DICTATION DATE: 05/26/19 1406 GAS APPLIANCE INSTALLER: 05/26/19 1548 ADM IN [facility] [address] [place] [address]
--- NOTE | 2019-05-27 15:33 | NUR ---
ALERT, CALM, COOPERATIVE, CONFUSED. MEDS ADMIN PER ORDERS WITH COMPLETE MED COMPLIANCE NOTED. NO ADVERSE BEHAVIORS NOTED. CONTINUE PLAN OF CARE.
[2019-05-27 20:00] VITALS: BP 146/78
--- NOTE | 2019-05-27 20:55 | NUR ---
B.) PT IS ALERT AND ORIENTED TO SELF AND AT TIMES SITUATION. SHE IS RECEIVED IN THE DAYROOM IN HER WHEEL CHAIR. SHE IS CALM, COOPERATIVE AND PLEASANT WITH STAFF. SHE IS AT TIMES ABLE TO MAKE HER NEEDS KNOWN. I.) PROVIDED PM MEDICATIONS PRESCRIBED. REDIRECT OFTEN. R.) COMPLIANT WITH ALL MEDICATIONS. DIFFICULT TO REDIRECT AT TIMES. P.) WILL CONTINUE TO MONITOR.
--- NOTE | 2019-05-28 08:30 | NUR ---
RECEIVED IN HALLWAY OUTSIDE OF NURSES STATION. CALM AND COOPERATIVE WITH CARE AND ASSESSMENT. NO AGGRESSIVE BEHAVIOR. REDIRECT AND REORIENT NEEDED. EATING BREAKFAST AT THIS TIME. CONTINUE PLAN OF CARE.
[2019-05-28 08:42] VITALS: BP 115/62
--- NOTE | 2019-05-28 14:54 | PN ---
PATIENT:BRIAN FONTENOT MEDICAL RECORD: [id number] LOCATION:[facility] ADMISSION DATE: 05/21/19 PROGRESS NOTE DATE OF SERVICE: 05/24/2019 SUBJECTIVE: The patient's case was discussed with staff. She has no new complaint. OBJECTIVE: The patient is taking a scheduled dose of Geodon and it seems to have helped with her confusion. ASSESSMENT: Dementia. PLAN: The Geodon is going to be reduced to 20 mg daily. She will be monitored for clinical changes associated with its use. She is also going to be started on Namenda for its memory enhancing properties. TRANSINT:[id number] Voice Confirmation ID: [id number] DOCUMENT ID: [id number] JORGE ROSA MD at 1454 CC: [id number] DICTATION DATE: 05/24/19 1627 PICTURE HANGER: 05/24/19 1820 ADM IN [facility] [address] [place] [address]
--- NOTE | 2019-05-28 14:54 | PN ---
PATIENT:BRIAN FONTENOT MEDICAL RECORD: [id number] LOCATION:[facility] ADMISSION DATE: 05/21/19 PROGRESS NOTE DATE OF SERVICE: 05/27/2019 SUBJECTIVE: The patient's case was discussed with staff. The patient does continue to perseverate and is difficult to redirect. OBJECTIVE: The patient's general appearance is appropriate. Her orientation is alert to person, disoriented to place, time and situation. Her speech is soft, low tone, low volume, however, her voice does escalate with requests and demands. Her associations are loose. Her eye contact is fair. Her judgment and insight are impaired. She does have poverty of thought. Her mood is depressed and anxious, easily agitated. Her affect is flat, narrow in range. The patient has no signs of psychomotor retardation or agitation. Her anxiety is moderate and escalates to severe. Her memory is poor for remote and recent events. The patient does not appear to be attending to visual or auditory hallucinations. ASSESSMENT: No change in diagnosis. PLAN: We will continue to monitor her tolerance to medications. I did increase her Geodon dose to an evening to b.i.d. We will continue to monitor her for mood stabilization. Plan will also to include keep her safe. Dictated By: Blanquita Lomeli APN I have interviewed/examined the above patient and agree with these documented findings. TRANSINT:[id number] Voice Confirmation ID: [id number] DOCUMENT ID: [id number] JORGE ROSA MD at 1454 at 1403 CC: [id number] DICTATION DATE: 05/27/19 1415 WEIGHER AND CRUSHER: 05/27/19 1633 ADM IN [facility] [address] [place] [address]
--- NOTE | 2019-05-28 19:52 | NUR ---
RECEIVED IN DAYROOM. SITTING IN A RECLINER. CONFUSED. RESTLESS. ATTEMPTS TO STAND WITHOUT ASSIST CONSTANTLY. CALM AND COOPERATIVE WITH CARE AND ASSESSMENT. REDIRECT AND REORIENT NEEDED. CONTINUES TO BE RESTLESS. CONTINUE PLAN OF CARE
[2019-05-28 19:58] VITALS: BP 111/58
--- NOTE | 2019-05-29 08:30 | NUR ---
RECEIVED IN HALLWAY OUTSIDE OF NURSES STATION. CALM AND COOPERATIVE WITH CARE AND ASSESSMENT. NO AGGRESSIVE BEHAVIORS. REDIRECT AND REORIENT NEEDED. EATING BREAKFAST AT THIS TIME. CONTINUE PLAN OF CARE.
[2019-05-29 08:43] VITALS: BP 171/82
--- NOTE | 2019-05-29 13:01 | PN ---
PATIENT:BRIAN FONTENOT MEDICAL RECORD: [id number] LOCATION:[facility]112 ADMISSION DATE: 05/21/19 PROGRESS NOTE DATE OF SERVICE: 05/28/2019 SUBJECTIVE: The patient's case was discussed with staff. She has no new complaint. OBJECTIVE: The patient is in good behavioral control, although she is quite impaired cognitively. She has limited insight about her situation. ASSESSMENT: Dementia. PLAN: Current medicines have been reviewed and will be maintained. Her long-term prognosis is guarded. TRANSINT:[id number] Voice Confirmation ID: [id number] DOCUMENT ID: [id number] JORGE ROSA MD at 1301 CC: [id number] DICTATION DATE: 05/28/19 1610 FILM NUMBERER: 05/28/19 1732 ADM IN [facility] [address] [place] [address]
--- NOTE | 2019-05-29 18:20 | NUR ---
PATIENT CONTINUING TO SCREAM IN DAYROOM. BEING VERY DISRUPTIVE TO OTHER PATIENTS.
--- NOTE | 2019-05-29 19:50 | NUR ---
RECEIVED IN DAYROOM. TRANSFERED TO BEDROOM AREA. RESTLESS YELLING OUT LOUDLY. INCREASING ANXIETY. UNABLE TO REDIRECT AND REORIENT. PRN ATIVAN 0.5 MG IM GIVEN FOR ANXIETY AND PRN HALDOL 2 MG IM GIVEN FOR PSYCHOTIC BEHAVIOR. CONTINUES TO BE ANXIOUS IN BED. CONTINUE PLAN OF CARE.
[2019-05-29 20:00] VITALS: BP 131/75
--- NOTE | 2019-05-29 20:27 | NUR ---
RESTING QUIETLY IN BED WITH EYES CLOSED AT THIS TIME.
--- NOTE | 2019-05-30 09:15 | NUR ---
RECEIVED IN HALLWAY OUTSIDE OF NURSES STATION. YELLING. AGITATED WITH CARE. REDIRECT AND REORIENT NEEDED. EATING BREAKFAST AT THIS TIME. CONTINUE PLAN OF CARE.
[2019-05-30 10:47] VITALS: BP 134/75
--- NOTE | 2019-05-30 10:50 | PN ---
PATIENT:BRIAN FONTENOT MEDICAL RECORD: [id number] LOCATION:[facility] ADMISSION DATE: 05/21/19 PROGRESS NOTE DATE OF SERVICE: 05/29/2019 SUBJECTIVE: The patient's case was discussed with staff. She has no new complaint. OBJECTIVE: The patient denies intent to harm herself or others. She is not eating adequately, but she has not been aggressive or received any p.r.n. medication today. ASSESSMENT: Dementia. PLAN: Current medicines have been reviewed. They will be maintained. TRANSINT:[id number] Voice Confirmation ID: [id number] DOCUMENT ID: [id number] JORGE ROSA MD at 1050 CC: [id number] DICTATION DATE: 05/29/19 1332 PAYER SPECIALIST: 05/29/19 1741 ADM IN [facility] [address] [place] [address]
--- NOTE | 2019-05-30 13:51 | NUR ---
PT EXIT-SEEKING, YELLING OUT, UNABLE TO REDIRECT PT AT THIS TIME. PT CONTSTANTLY YELLS OUT "NURSE HELP ME, NURSE HELP ME, OH GOD PLEASE." WHEN ASKED PT DOES NOT TELL STAFF WHY SHE IS YELLING OUT. ATIVAN 0.5 MG IM GIVEN PER DR. ROSA ORDER. CHAIR ALARM IN PLACE. WILL REASSESS FOR EFFECTIVENESS.
--- NOTE | 2019-05-30 14:51 | NUR ---
PRN NOT EFFECTIVE AT THIS TIME.
--- NOTE | 2019-05-30 21:52 | NUR ---
B.) PT IS ALERT AND ORIENTED TO SELF ONLY. SHE HAS POOR INSIGHT INTO HER SITUATION. SHE IS UNABLE TO AMBULATE WITHOUT ASSIST AND AT TIMES CAN MAKE HER NEEDS KNOWN. SHE IS CALM AND COOPERATIVE WITH STAFF. I.) PROVIDED PM MEDICATIONS PRESCRIBED. REDIRECT OFTEN. R.) COMPLIANT WITH ALL MEDICATIONS. EASY TO REDIRECT. P.) WILL CONTINUE TO MONITOR.
[2019-05-30 23:41] VITALS: BP 137/67
--- NOTE | 2019-05-31 08:16 | NUR ---
PT SITTING IN W/C YELLING OUT, EXIT-SEEKING AND UNABLE TO REDIRECT. STAFF ATTEMPTED MULTIPLE TIMES TO REDIRECT PT FROM YELLING OUT "DOCTOR, DOCTOR" MULTIPLE TIMES. PT BEGAN TO UPSET THE MILIEU. ATIVAN 0.[address] ROSA ORDER. WILL REASSES FOR EFFECTIVENESS.
--- NOTE | 2019-05-31 09:16 | NUR ---
PRN NOT EFFECTIVE AT THIS TIME. PT CONTS TO YELL OUT AND EXIT-SEEK. WILL CONT TO MONITOR.
--- NOTE | 2019-05-31 12:26 | PN ---
PATIENT:BRIAN FONTENOT MEDICAL RECORD: [id number] LOCATION:[facility] ADMISSION DATE: 05/21/19 PROGRESS NOTE DATE OF SERVICE: 05/30/2019 SUBJECTIVE: The patient's case was discussed with staff. She has no new complaint. OBJECTIVE: The patient is partially oriented and in fair behavioral control. She did receive p.r.n. Haldol and Ativan last night because of some agitated behavior. Today, she is calmer. ASSESSMENT: Dementia. PLAN: Current medicines have been reviewed and will be maintained. Long-term prognosis is guarded. TRANSINT:[id number] Voice Confirmation ID: [id number] DOCUMENT ID: [id number] JORGE ROSA MD at 1226 CC: [id number] DICTATION DATE: 05/30/19 1641 GAMBLING DEALER: 05/30/19 1810 ADM IN [place] [id number] [place] [id number]
[2019-05-31 13:18] VITALS: BP 135/66
--- NOTE | 2019-05-31 13:35 | NUR ---
PT YELLING OUT OVER AND OVER "HELP ME HELP ME. DOCTOR HELP ME." STAFF ATTEMPTED TO REDIRECT MULTIPLE TIMES. UNABLE TO REDIRECT PT AT THIS TIME. ATIVAN 0.5 MG IM ADMINISTERED PER DR. ROSA ORDER. WILL REASSES FOR EFFECTIVENESS.
--- NOTE | 2019-05-31 14:06 | NUR ---
Nutrition Follow-up: Diet: Regular, Ensure TID PO intake: 41% avg x 9 meals Wt: 139# (05/26); 141.4# (05/20) Last BM: 05/28 Meds noted: Megace, Protonix -Encourage PO intake and honor food preferences within diet restrictions. -Monitor wt. -RD following.
--- NOTE | 2019-05-31 14:35 | NUR ---
PRN EFFECTIVE AT THIS TIME. PT IS RESTING.
--- NOTE | 2019-05-31 18:44 | NUR ---
pt spoke with 2 family members this shift. pt did not conversated well. conts to yell out.
[2019-05-31 20:00] VITALS: BP 131/77
--- NOTE | 2019-05-31 21:12 | NUR ---
B.) PT IS ALERT AND ORIENTED TO SELF ONLY. SHE HAS POOR INSIGHT INTO HER SITUATION, SHE HAD DEEP RAPID RESPIRATIONS. SHE STATES "THEY ARE KILLING US." SHE IS RESTLESS AND AND ATTEMPTING TO PULL HER CLOTHES OFF. I.) PROVIDED PM MEDICATIONS PRESCRIBED. REDIRECT OFTEN. R.) COMPLIANT WITH ALL MEDICATIONS. VERY DIFFICULT TO REDIRECT. P.) WILL CONTINUE TO MONITOR.
--- NOTE | 2019-06-01 00:59 | NUR ---
PATIENT IS RESTING QUIETLY, RESP. EVEN AND UNLABORED, PULSE RATE RECHECKED AND IS 88. DR. MILLER WAS NOTIFIED THAT DEL POST WORKED.
--- NOTE | 2019-06-01 04:16 | NUR ---
PT RESTLESS AND SCREAMING OUT FOR HELP. SHE IS YELLING OUT. UNABLE TO REDIRECT. UNABLE TO COMPREHEND RISK FOR HARM. PRN HALDOL 2 MG AND ATIVAN 0.5MG ADMINISTERED IM. WILL CONTINUE TO MONITOR.
--- NOTE | 2019-06-01 05:16 | NUR ---
PT RESTING CALMLY IN BED WITH EYES CLOSED. WILL CONTINUE TO MONITOR.
[2019-06-01 09:38] VITALS: BP 106/58
--- NOTE | 2019-06-01 10:36 | NUR ---
The physical activity therapy specialist is here trying to get the patient up to walk, she stands, but then falls back into her chair. Her son Bonifacio called and asked about her. She is calling out for Bonifacio and Jonas. She has poor short term memory and poor insight into her situation. Provide prescribed meds. Redirect to appropriate behavior as needed. The patient remains sleepy, but talking out. Continue POC.
[2019-06-01 20:00] VITALS: BP 164/75
--- NOTE | 2019-06-01 20:07 | NUR ---
PATIENT RECEIVED IN DAYROOM, VERY CONFUSED, HOLLERS OUT DIFFERENT NAMES, REACHES OUT IF SHE SEES THINGS. DOES NOT HAVE ANY INSIGHT AT ALL. COMPLIANT WITH MEDS, NO ADVERSE REACTION NOTED. WILL FOLLOW POC
[2019-06-02 09:20] VITALS: BP 130/76
--- NOTE | 2019-06-02 09:54 | NUR ---
The patient is very sleepy this am, assisted her to the bathroom, she is very sleepy. She slept through breakfast so staff held her am meds. The patient awakened so staff will provide her am meds, she just screams and screams "Help me, help." She yells out for "Sera" She will not listen to redirection and does not follow simple direction. She has poor insight into her situation and poor short term memory recall. She coughs on occassion, but her lungs are clear and she does not have a temperature. Continue POC.
--- NOTE | 2019-06-02 10:48 | NUR ---
The patient is fully awake and she is yelling out "Take me home, take me home, nurse, nurse." She is yelling out and she does not redirect. Ativan 0.5 mg IM provided, monitor behavior and mood.
--- NOTE | 2019-06-02 15:27 | NUR ---
The patient is yelling out for different people's names she is upsetting the rest of the unit milieu. Ativan 0.5 mg po provided. Will monitor her mood and behavior.
--- NOTE | 2019-06-02 15:41 | PN ---
PATIENT:BRIAN FONTENOT MEDICAL RECORD: [id number] LOCATION:[facility] ADMISSION DATE: 05/21/19 PROGRESS NOTE DATE OF SERVICE: 06/01/2019 SUBJECTIVE: The patient's case was discussed with staff. Staff reports that she does continue to have some manipulative behaviors and also some very bizarre behaviors. The patient was medicated with p.r.n. medications last night and during the night. OBJECTIVE: The patient is reclining in a chair. She is slightly disheveled. She is alert and oriented to person, disoriented to place, time, and situation. Her speech is soft, low tone, low volume; however, can escalate. Her associations are loose. Her eye contact is fair. Her thought and concentration is distracted. Her mood is anxious and easily agitated. Affect is flat narrow in range. The patient has no signs and symptoms of abnormal movements at this time. Her memory is poor for both recent and remote events. The patient does not appear to be attending to any visual or auditory hallucinations. Her judgment and insight are poor. Impulsivity is high. ASSESSMENT: No change in the previous assessment. PLAN: We will continue to monitor the patient's tolerance to her medications, her cognitive and her behavioral changes. We will try to keep her safe and to decrease her agitation and anxiety. Dictated By: Blanuqita Lomeli APN I have interviewed/examined the above patient and agree with these documented findings. TRANSINT:[id number] Voice Confirmation ID: [id number] DOCUMENT ID: [id number] JORGE ROSA MD at 1443 at 1541 CC: [id number] DICTATION DATE: 06/01/19 1427 STEEL POST INSTALLER SUPERVISOR: 06/01/19 2216 ADM IN [facility] [address] [place] [address]
--- NOTE | 2019-06-02 19:55 | NUR ---
RECEIVED PATIENT IN DAYROOM IN [facility], CONFUSED, CALLING OUT DIFFERENT NAMES, HOLDING HER ARMS OUT, MEDS CRUSHED, NO ADVERSE REACTION NOTED. CAN NOT MAKE ANY NEEDS KNOWN. WILL FOLLOW POC
[2019-06-02 20:00] VITALS: BP 142/72
--- NOTE | 2019-06-03 00:54 | NUR ---
PATIENT GIVEN ATIVAN IM @ 2039 ON 06-02-19 FOR EXTREME AGITATION. PULSE RATE 130 CALLED AUGUSTINE RED APN AND DISCUSSED DUE TO PATIENT BEING ON GEODON, GEODON CAUSES A LONG Q-T INTERVAL. WILL MONITOR
--- NOTE | 2019-06-03 00:55 | NUR ---
PATIENT CONTINUES TO BE ANXIOUS STILL REACHING FOR THINGS UNSEEN, MOANING AND CALLING FOR DIFFERENT FAMILY MEMBERS NAMES, HEART RATE, OTHER VITALS STABLE, O2 SAT 97%. ATIVAN AND HALDOL GIVEN IM TO LEFT DELTOID FOR EXTREME AGIATION/PSYCHOSIS. WILL CONTINUE TO MONITOR HEART RATE AND BEHAVIOR. NO RESP. DISTRESS NOTED.
--- NOTE | 2019-06-03 02:17 | NUR ---
PULSE RATE IS 74, PATIENT RESTING QUIETLY, WILL MONITOR
--- NOTE | 2019-06-03 08:30 | NUR ---
RECEIVED IN HALLWAY OUTSIDE OF NURSES STATION. CALM AND COOPERATIVE WITH CARE AND ASSESSMENT. VERY DROWSY THIS MORNING. NO AGGRESSIVE BEHAVIOR. REDIRECT AND REORIENT NEEDED. EATING BREAKFAST AT THIS TIME. CONTINUE PLAN OF CARE.
[2019-06-03 08:44] VITALS: BP 137/77
--- NOTE | 2019-06-03 09:18 | PN ---
PATIENT:BRIAN FONTENOT MEDICAL RECORD: [id number] LOCATION:[facility] ADMISSION DATE: 05/21/19 PROGRESS NOTE DATE OF SERVICE: 06/02/2019 SUBJECTIVE: The patient's case was discussed with staff. Staff reports that she does continue to have some manipulative behaviors. The patient was not medicated last night for p.r.n. She did sleep 8 hours and she is eating fair. OBJECTIVE: The patient is sitting in a chair. She is slightly disheveled. She is alert and oriented to person, disoriented to place, time, and situation. Her speech is soft, low tone, low volume; however, her voice can escalate. Her associations are loose. Her eye contact is fair. Her thought and concentration is distracted. Her mood is anxious and easily agitated. Affect is flat narrow in range. The patient has no signs and symptoms of abnormal movements. Her memory is poor for both recent and remote events. The patient does not appear to be attending to any auditory or visual external stimuli. Her judgment and insight are poor. Her impulsivity is high. ASSESSMENT: No change to previous assessment. PLAN: We will continue to monitor the patient's tolerance to her medication change her cognitive and her behavioral changes. We will try to keep her safe and decrease her agitation and anxiety. Dictated By: Blanquita Lomeli APN I have interviewed/examined the above patient and agree with these documented findings. TRANSINT:[id number] Voice Confirmation ID: [id number] DOCUMENT ID: [id number] JORGE ROSA MD at 1444 at 0918 CC: [id number] DICTATION DATE: 06/02/19 1540 SUPERVISOR BRIAR SHOP: 06/03/19 0046 ADM IN [facility] [address] [place] [address]
--- NOTE | 2019-06-03 19:39 | NUR ---
RECEIVED IN DAYROOM. SITTING IN A CHAIR WITH PEERS AT HER SIDE. CALM AND COOPERATIVE WITH CARE AND ASSESSMENT. ENCOURAGE TO EXPRESS NEEDS. REDIRECT AND REORIENT NEEDED. SITTING QUIETLY IN HALLWAY AT NURSES STATION AT THIS TIME. CONTINUE PLAN OF CARE.
[2019-06-03 20:00] VITALS: BP 132/54
[2019-06-04 08:44] VITALS: BP 150/81
--- NOTE | 2019-06-04 14:43 | PN ---
PATIENT:BRIAN FONTENOT MEDICAL RECORD: [id number] LOCATION:[facility] ADMISSION DATE: 05/21/19 PROGRESS NOTE DATE OF SERVICE: 05/31/2019 SUBJECTIVE: The patient's case was discussed with staff. She has no new complaint. OBJECTIVE: The patient is in good behavioral control. She has poor insight about her situation. She has been compliant with medications. She still is not eating adequately, but she is receiving Megace to assist with appetite stimulation. She did sleep well last night and again there has been no aggressive behavior today. ASSESSMENT: Dementia. PLAN: The patient will be given Namenda at a slightly higher dose. Namenda is being used to treat her underlying cognitive impairment. She will be monitored for clinical changes associated with its use. TRANSINT:[id number] Voice Confirmation ID: [id number] DOCUMENT ID: [id number] JORGE ROSA MD at 1443 CC: [id number] DICTATION DATE: 05/31/19 1624 BUS DRIVER/MONITOR: 05/31/19 1634 ADM IN [place] [id number] [place] [address]
--- NOTE | 2019-06-04 14:44 | PN ---
PATIENT:BRIAN FONTENOT MEDICAL RECORD: [id number] LOCATION:[facility] ADMISSION DATE: 05/21/19 PROGRESS NOTE DATE OF SERVICE: 06/03/2019 SUBJECTIVE: The patient's case was discussed with staff. Staff reports that she continues to have an aggressive behavior, was medicated twice last night with p.r.n. medications. Did have an increase in heart rate. OBJECTIVE: The patient is sitting in chair. She appears slightly sedated. She is slightly disheveled. She is oriented to person, disoriented to place, time and situation, is alert. Her speech is soft, low tone, low volume; however, her voice can escalate. Her mood is anxious and easily agitated. Affect is flat, narrow in range. The patient has no signs or symptoms of abnormal movements. Her memory is poor for both recent and remote events. The patient does not appear to be attending to any visual or auditory external stimuli. Her impulsivity is high. ASSESSMENT: No change in previous assessment. PLAN: We will start the patient on a low dose of BuSpar to see if that helps her anxiety. We will continue to strive to stabilize her mood, decrease her aggression and agitation and her cognitive. Dictated By: Blanquita Lomeli APN I have interviewed/examined the above patient and agree with these documented findings. TRANSINT:[id number] Voice Confirmation ID: [id number] DOCUMENT ID: [id number] JORGE ROSA MD at 1444 at 1653 CC: [id number] DICTATION DATE: 06/03/19 0918 TYPEWRITER REPAIRER: 06/03/19 1706 ADM IN [facility] [address] [place] [address]
[2019-06-04 17:19] LABS: BASOPHILS 0.2 % (0-2); EOSINOPHILS 2.3 % (0-7); HEMATOCRIT 36.4 % (36.0-48.0); HEMOGLOBIN 10.9 g/dL (12-16); IMMATURE GRANULOCYTES 0.5 % (0-5); LYMPHOCYTES 11.4 % (15-50); MCH 27.8 pg (26.0-34.0); MCHC 29.9 g/dL (31.0-37.0); MCV 92.9 fL (80.0-100.0); MONOCYTES 9.3 % (2-11); NEUTROPHILS 76.3 % (40-80); RBC 3.92 10x6/uL (4.00-5.40); RDW 16.5 % (11.5-14.5); WBC 9.1 10x3/uL (4.8-10.8)
[2019-06-04 17:30] LABS: PLATELET COUNT 281 10x3/uL (130-400)
[2019-06-04 17:32] LABS: ANION GAP 15.1 mmol/L (8-16); CALCIUM 8.8 mg/dL (8.5-10.1); CARBON DIOXIDE 23.4 mmol/L (21.0-32.0); CREATININE - SERUM 1.3 mg/dL (0.6-1.3); POTASSIUM - SERUM 4.5 mmol/L (3.5-5.1)
--- NOTE | 2019-06-04 19:21 | NUR ---
RECEIVED IN DAYROOM. SITTING IN A CHAIR WITH PEERS AT HER SIDE. CALM AND COOPERATIVE WITH CARE AND ASSESSMENT. ENCOURAGE TO EXPRESS NEEDS. REDIRECT AND REORIENT NEEDED. CONTINUES TO SIT QUIETLY. CONTINUE PLAN OF CARE.
[2019-06-04 20:25] VITALS: BP 169/90
[2019-06-05 08:15] VITALS: BP 109/68
--- NOTE | 2019-06-05 12:42 | PN ---
PATIENT:BRIAN FONTENOT MEDICAL RECORD: [id number] LOCATION:[facility] ADMISSION DATE: 05/21/19 PROGRESS NOTE DATE OF SERVICE: 06/04/2019 SUBJECTIVE: The patient's case was discussed with staff. She has no new complaint. OBJECTIVE: The patient is in good behavioral control. She has poor insight about her situation. She denies any thoughts of harming herself or others. Unfortunately, she did not eat yesterday. When asked about this, she says she did eat, but that is not correct. ASSESSMENT: Dementia. PLAN: I am going to start the patient on Megace for its appetite stimulating properties. She will be monitored for clinical changes associated with its use. Her long-term prognosis is guarded. TRANSINT:[id number] Voice Confirmation ID: [id number] DOCUMENT ID: [id number] JORGE ROSA MD at 1242 CC: [id number] DICTATION DATE: 06/04/19 1606 ROTARY DRIER: 06/04/19 2118 ADM IN [place] [id number] [place] [address]
--- NOTE | 2019-06-05 19:43 | NUR ---
RECEIVED IN DAYROOM. SITTING IN A CHAIR WITH PEERS AT HER SIDE. CALM AND COOPERATIVE WITH CARE AND ASSESSMENT. ENCOURAGE TO EXPRESS NEEDS. REDIRECT AND REORIENT NEEDED. CONTINUES TO SIT CALMLY IN CHAIR. CONTINUE PLAN OF CARE.
[2019-06-05 20:40] VITALS: BP 141/79
[2019-06-06 08:54] VITALS: BP 130/78
--- NOTE | 2019-06-06 10:37 | NUR ---
SITTING UP IN CHAIR WITH EYES OPEN. NO C/O PAIN. NO S/S OF ACUTE DISTRESS NOTED. FREQUENT COUGH, NON-PRODUCTIVE. DENIES ANY NEEDS AT THIS TIME. WILL CONTINUE TO MONITOR.
--- NOTE | 2019-06-06 14:56 | PN ---
PATIENT:BRIAN FONTENOT MEDICAL RECORD: [id number] LOCATION:[facility] ADMISSION DATE: 05/21/19 PROGRESS NOTE DATE OF SERVICE: 06/05/2019 SUBJECTIVE: The patient's case was discussed with staff. She has no new complaint. OBJECTIVE: The patient is in good behavioral control. She has poor insight about her situation. She does tolerate her medicines well. ASSESSMENT: Dementia. PLAN: Current medicines have been reviewed and will be maintained. I anticipate that she can reasonably be transitioned out of the hospital soon if this level of improvement continues. TRANSINT:[id number] Voice Confirmation ID: [id number] DOCUMENT ID: [id number] JORGE ROSA MD at 1456 CC: [id number] DICTATION DATE: 06/05/19 1521 FORGING OPERATOR: 06/05/19 1738 ADM IN [facility] [address] [place] [address]
--- NOTE | 2019-06-06 15:59 | NUR ---
PT CONTS TO COUGH. DR. MILLER NOTIFIED. N/O FOR SONAL, TESSALON PERLE 100 MG TID. NEW ORDERS STARTED THIS SHIFT. PT LUNG SOUNDS CLEAR AT THIS TIME. WILL CONT TO MONITOR.
[2019-06-06 19:55] VITALS: BP 120/56
--- NOTE | 2019-06-07 00:05 | NUR ---
B)RECEIVED PATIENT SITTING IN A CHAIR IN THE DAYROOM. CONFUSED AND DISORIENTED. REACHES OUT FOR THINGS THAT ARE NOT THERE. DRY HACKING COUGH. SITS WITH EYES CLOSED. I)ADMINISTER MEDS AND MONITOR COMPLIANCE. REORIENT NEEDED. R)MED COMPLIANT. POOR REORIENTATION DUR TO IMPAIRED ABILITY TO COMPREHEND, PROCESS AND RETAIN INFORMATION. P)CONTINUE POC AND PROVIDE SAFE ENVIRONMENT.
--- NOTE | 2019-06-07 08:29 | NUR ---
PT CONTS COUGHING. VITALS SIGNS OBTAINED. O2 SAT: 84%. 2 LITERS OF O2 DONNED. LUNG SOUNDS CLEAR UPPER AND DIMISHED LOWER LOBES. 2 LITERS BROUGHT O2 SAT TO 95%. PT DID NOT TALK TO STAFF DURING THIS TIME. PT IS BREATHING EVENLY AND UNLABORED. DR. MILLER MADE AWARE. CHEST X-RAY ORDERED. WILL CONT TO MONITOR. CHAIR ALARM IN PLACE AND ACTIVE.
--- NOTE | 2019-06-07 08:46 | NUR ---
SPEECH THERAPY CONSULT ORDERED WELL.
[2019-06-07 09:38] VITALS: BP 132/71
--- NOTE | 2019-06-07 10:53 | NUR ---
SHE IS COUGHING THIS MORNING, AND X RAY WAS DONE. SHE WAS PLACED ON O2, BUT SHE KEEPS TAKING IT OFF. SHE TOOK HER MEDS WITHOUT ANY PROBLEMS. SHE AT 5% OF HER BREAKFAST.
[2019-06-07 13:14] LABS: BASOPHILS 0.2 % (0-2); EOSINOPHILS 2.8 % (0-7); HEMATOCRIT 39.8 % (36.0-48.0); HEMOGLOBIN 12.1 g/dL (12-16); IMMATURE GRANULOCYTES 1.2 % (0-5); MCHC 30.4 g/dL (31.0-37.0); MCV 92.1 fL (80.0-100.0); MEAN PLATELET VOLUME 10.3 fL (7.4-10.4); MONOCYTES 9.8 % (2-11); RBC 4.32 10x6/uL (4.00-5.40); RDW 16.3 % (11.5-14.5); WBC 12.2 10x3/uL (4.8-10.8)
[2019-06-07 13:15] LABS: ANION GAP 16.5 mmol/L (8-16); CALCIUM 9.8 mg/dL (8.5-10.1); CARBON DIOXIDE 23.1 mmol/L (21.0-32.0); CREATININE - SERUM 1.5 mg/dL (0.6-1.3); POTASSIUM - SERUM 4.6 mmol/L (3.5-5.1)
[2019-06-07 13:16] LABS: PLATELET COUNT 351 10x3/uL (130-400)
--- NOTE | 2019-06-07 13:21 | PN ---
PATIENT:BRIAN FONTENOT MEDICAL RECORD: [id number] LOCATION:[facility] ADMISSION DATE: 05/21/19 PROGRESS NOTE DATE OF SERVICE: 06/06/2019 SUBJECTIVE: The patient's case was discussed with staff. She has no new complaint. OBJECTIVE: The patient is in good behavioral control with limited insight about her condition. She does tolerate her medicines well. ASSESSMENT: Dementia. PLAN: I anticipate the patient will be transitioned out of the hospital soon. Current medicines will be maintained. TRANSINT:[id number] Voice Confirmation ID: [id number] DOCUMENT ID: [id number] JORGE ROSA MD at 1321 CC: [id number] DICTATION DATE: 06/06/19 153 INTERN RETAIL: 06/06/19 1746 ADM IN [place] [id number] [place] [address]
--- NOTE | 2019-06-07 13:36 | NUR ---
NURSE ATTEMPTED TO CALL DR. MILLER TO REPORT, CHEST RAY AND LAB RESULTS. AWAITING CALLBACK.
--- NOTE | 2019-06-07 13:49 | NUR ---
PT SON CALLED TO GET AN UPDATE ON PT. NURSE EXPLAINED YESTERDAY SHE HAD A COUGH AND NURSE NOTIFIED DOCTOR OF HER COUGH. N/O FOR MEDICAITON GIVEN. NURSE CAME IN THIS MORNIGN AND PT CONT TO COUGH. DR. ANGELA MENA PT AND NEW ORDER FOR OXYGEN AT 2 LITERS, CHEST X-RAY AND SPEECH THERAPY CONSULT. HE STATED SHE DOES THAT FROM TIME TO TIME. SHE DOES THAT FOR ATTENTION SEEKING. SHE TOLD ME ONE TIME IM BLEEDING TO . I CAME TO HER HOUSE AND SHE WASNT BLEEDING AND HER H&H WAS GOOD SO SHE WASNT LOSING BLOOD." NURSE STATED WE DID THE STEPS CAUSE IT WAS NEW TO THIS NURSE SO WE DID A NUMBER OF THINGS TO ENSURE SHE WASNT SICK. HE VERBALIZED UNDERSTANDING AND WAS THANKFUL. NURSE GAVE AN UPDATE AND SON VERBALIZIED UNDERSTANDING OF WHAT WAS GOING ON.
--- NOTE | 2019-06-07 14:34 | NUR ---
Nutrition Follow-up: PO intake poor. Ate ~5% of breakfast this AM. Diet: Regular, Ensure TID PO intake: 21% avg x 10 meals Wt: 138# (06/02); 141.4# (admit) - loss of 3.4# Last BM: 06/04 Labs reviewed Meds noted: Linzess, Megace, Protonix -Encourage PO intake and honor food preferences. -Monitor wt. -RD following.
[2019-06-07 20:10] VITALS: BP 130/67
--- NOTE | 2019-06-08 00:17 | NUR ---
B) patient is alert and oriented to self, coughing frequently non-productive, O2 at 2 liters via NC, I) Administered scheduled medications as ordered, encouraged deep cough to clear sinus and throat of mucus, showered this shift R) mediation compliant, resting quietly after shower, P) Continue plan of care.
--- NOTE | 2019-06-08 08:18 | NUR ---
The patient is awake and she is oriented to self only. She is calm and pleasant. She is coughing, but her lungs are clear. She is on O2 @2L/M per N/C. She has poor insight into her situation. She is not using echolalia and she is not demading or aggressive this am. Continue POC.
[2019-06-08 08:39] VITALS: BP 130/74
[2019-06-08 20:00] VITALS: BP 131/68
--- NOTE | 2019-06-09 00:20 | NUR ---
B) patient is alert and oriented to self, cough but less sinus congestion than previous shift I) Administered scheduled medications as ordered, assisted with needs R) mediation compliant, improved behavior P) continue plan of care.
--- NOTE | 2019-06-09 01:53 | NUR ---
PT IS YELLING OUT CONSTANTLY. UNABLE TO REDIRECT. ADMINISTERED PRN 0.5 MG ATIVAN IM. WILL CONTINUE TO MONITOR.
--- NOTE | 2019-06-09 02:25 | NUR ---
PT IS RESTING CALMLY IN BED WITH HER EYES CLOSED NO DISTRESS NOTED. WILL CONTINUE TO MONITOR.
--- NOTE | 2019-06-09 10:21 | NUR ---
The patient is awake and she is looking around, she knows her name, poor insight into her situation. She is still coughing, but sounds better, she remains lethargic. Provide prescribed meds. The patient is compliant with meds. She has not shown any aggression, she is on O2@2L/M. Continue POC.
--- NOTE | 2019-06-09 13:40 | NUR ---
BECOMING INCREASINGLY ANXIOUS AND EXTREMELY VERBAL, ADM ATIVAN PER DRS ORDERS, WILL CONT TO MONITOR
[2019-06-09 20:00] VITALS: BP 166/97
--- NOTE | 2019-06-09 20:56 | NUR ---
B.) PT IS ALERT AND ORIENTED TO SELF ONLY. SHE IS RESTLESS IN HER CHAIR AND PULLING AT O2 TUBES. SHE IS YELLING OUT LOUDLY. SHE IS RECEIVED IN THE HALLWAY AT THE NURSES STATION AND IS OBSERVED TRYING TO GET OUT OF HER CHAIR WITHOUT ASSIST. I.) PROVIDED PM MEDICATIONS PRESCRIBED. ATTEMPTED TO REDIRECT. R.) COMPLIANT WITH ALL MEDICATIONS. UNABLE TO REDIRECT. ADMINISTERED PRN 0.5 MG ATIVAN IM. P.) WILL CONTINUE TO MONITOR.
--- NOTE | 2019-06-09 21:25 | NUR ---
PT IS RESTING CALMLY IN BED WITH EYES CLOSED. NO SIGNS OF DISTRESS NEEDED. WILL CONTINUE TO MONITOR.
[2019-06-10 08:54] VITALS: BP 132/71
--- NOTE | 2019-06-10 10:11 | NUR ---
The patient is awake and alert she is yelling intermittantly. Talking nonsensical. She will say "Are you going to put me in the car?" Explained to her that she is in the hospital. She said "I need to be in the hospital." Provide prescribed meds. The patient is compliant with meds. She is still gurgling in her throat. Applied O2@2L/M per N/C. Continue POC.
--- NOTE | 2019-06-10 18:38 | NUR ---
Offering the patient water every two hours and taking her to the bathroom. At this time she is yelling out, she was taken to the toilet and as soon as she was brought back to the day room she said "I need to go potty." She is now just yelling for the sake of yelling.
--- NOTE | 2019-06-10 19:32 | NUR ---
RECEIVED IN DAYROOM. SITTING IN A RECLINING CHAIR WITH PEERS AT HER SIDE. YELLING OUT. RESTLESS. REDIERCT AND REORIENT NEEDED. SITTING OUTSIDE OF NURSES STATION AT THIS TIME. CONTINUES TO HAVE ANXIETY. YELLING OUT. CONTINUE PLAN OF CARE.
--- NOTE | 2019-06-10 19:35 | NUR ---
PT IS YELLING OUT AND RESTLESS. SHE IS ATTEMPTING TO GET OUT OF [facility]-CHAIR WITHOUT ASSIST. PRN ATIVAN PO 0.5 MG ADMINISTERED. WILL CONTINUE TO MONITOR.
[2019-06-10 20:00] VITALS: BP 157/84
--- NOTE | 2019-06-10 20:01 | NUR ---
PT IS RESTING CALMY IN BED WITH EYES CLOSED. NO SIGNS OF DISTRESS NOTED. WILL CONTINUE TO MONITOR.
[2019-06-11 08:29] VITALS: BP 140/70
--- NOTE | 2019-06-11 12:00 | NUR ---
RECEIVED IN HALLWAY OUTSIDE OF NURSES STATION. COOPERATIVE WITH CARE AND ASSESSMENT. YELLING OUT. ANXIOUS. NO AGGRESSIVE BEHAVIOR. REDIRECT AND REORIENT NEEDED. EATING LUNCH AT THIS TIME. CONTINUE PLAN OF CARE.
--- NOTE | 2019-06-11 14:02 | PN ---
PATIENT:BRIAN FONTENOT MEDICAL RECORD: [id number] LOCATION:[facility] ADMISSION DATE: 05/21/19 PROGRESS NOTE DATE OF SERVICE: 06/07/2019 SUBJECTIVE: The patient's case was discussed with staff. She has no new complaint. OBJECTIVE: The patient is in good behavioral control. She denies any thoughts of harming herself or others. ASSESSMENT: Dementia. PLAN: The patient in my opinion is a little sedated again. It is difficult to find a middle ground where her behaviors are acceptable, but she is not sedated. I am going to discontinue the Klonopin and Geodon again and we will reassess in a day or two. TRANSINT:[id number] Voice Confirmation ID: [id number] DOCUMENT ID: [id number] JORGE ROSA MD at 1402 CC: [id number] DICTATION DATE: 06/07/19 1554 REHABILITATION THERAPY AIDE: 06/07/19 1628 ADM IN [place] [address] [place] [address]
--- NOTE | 2019-06-11 16:07 | NUR ---
PT YELLING "HELP ME" REPEATEDLY. PO ATIVAN GIVEN.
[2019-06-11 20:11] VITALS: BP 136/72
--- NOTE | 2019-06-11 20:42 | NUR ---
RECEIVED IN DAYROOM. SITTING IN A CHAIR WITH PEERS AT HIS SIDE. CALM AND COOPERATIVE WITH CARE AND ASSESSMENT. NO YELLING OUT AT THIS TIME. ENCOURAGE TO EXPRESS NEEDS. CONTINUES TO SIT CALMLY IN DAYROOM. CONTINUE PLAN OF CARE.
[2019-06-12 08:47] VITALS: BP 110/71
--- NOTE | 2019-06-12 09:13 | NUR ---
RECEIVED IN HALLWAY OUTSIDE OF NURSES STATION. COOPERATIVE WITH CARE AND ASSESSMENT. YELLING OUT. NO AGGRESSION. REDIRECT AND REORIENT NEEDED. EATING BREAKFAST AT THIS TIME. CONTINUE PLAN OF CARE.
--- NOTE | 2019-06-12 15:01 | PN ---
PATIENT:BRIAN FONTENOT MEDICAL RECORD: [id number] LOCATION:[facility] ADMISSION DATE: 05/21/19 PROGRESS NOTE DATE OF SERVICE: 06/11/2019 SUBJECTIVE: The patient's case was discussed with staff. She has no new complaint. OBJECTIVE: The patient has been agitated and difficult to redirect. She has lost 5 pounds since she has been here; however, she is receiving Megace for appetite stimulation. ASSESSMENT: Dementia. PLAN: The patient is going to be rechallenged with a low dose of Klonopin. Hopefully, we will not over sedate her at this lower dose. TRANSINT:[id number] Voice Confirmation ID: [id number] DOCUMENT ID: [id number] JORGE ROSA MD at 1501 CC: [id number] DICTATION DATE: 06/11/19 1651 PARKING ANALYST: 06/11/19 [address] [facility] [address] [place] [address]
--- NOTE | 2019-06-12 19:36 | NUR ---
RECEIVED IN DAYROOM. SITTING IN A RECLINER WITH PEERS AT HER SIDE. RESTLESS. YELLING OUT CONSTANTLY. REDIRECT AND REORIENT NEEDED. CONTINUES TO RESTLESS IN CHAIR. CONTINUE PLAN OF CARE.
[2019-06-12 20:22] VITALS: BP 162/62
[2019-06-13 09:10] VITALS: BP 140/95
--- NOTE | 2019-06-13 11:46 | PN ---
PATIENT:BRIAN FONTENOT MEDICAL RECORD: [id number] LOCATION:[facility] ADMISSION DATE: 05/21/19 PROGRESS NOTE DATE OF SERVICE: 06/12/2019 SUBJECTIVE: The patient's case was discussed with staff. She has no new complaint. OBJECTIVE: The patient is in good behavioral control with limited insight about her condition. ASSESSMENT: Dementia. PLAN: At this time, I am planning to discharge the patient tomorrow or the next day if this level of improvement continues. TRANSINT:[id number] Voice Confirmation ID: [id number] DOCUMENT ID: [id number] JORGE ROSA MD at 1146 CC: [id number] DICTATION DATE: 06/12/19 1651 ASSOCIATE PROFESSOR COMPUTER SCIENCE: 06/12/19 2248 ADM IN [place] [id number] [place] [address]
--- NOTE | 2019-06-13 12:00 | NUR ---
RECEIVED IN HALLWAY OUTSIDE OF NURSES STATION. CALM AND COOPERATIVE WITH CARE AND ASSESSMENT. YELLING OUT AT TIMES. NO AGGRESSION. REDIRECT AND REORIENT NEEDED. EATING LUNCH AT THIS TIME. CONTINUE PLAN OF CARE.
[2019-06-13 20:00] VITALS: BP 150/78
--- NOTE | 2019-06-13 20:56 | NUR ---
B.) PT IS ALERT AND ORIENTED TO SELF ONLY. SHE IS RECEIVED IN THE DAYROOM. SHE IS YELLING OUT "IF YOU DONT LET ME GO HOME IM GOING TO KEEP YELLING." SHE IS AGGRESSIVE WITH STAFF THEY ATTEMPT TO GET HER INTO THE BED. I.) REDIRECT OFTEN. PROVIDED PM MEDICATIONS PRESCRIBED. ADMINISTERED PRN HALDOL 2MG AND 0.5 MG ATIVAN IM. R.) RESISTANT TO REDIRECTION. COMPLIANT WITH ALL MEDICATIONS. P.) WILL CONTINUE TO MONITOR.
--- NOTE | 2019-06-13 21:35 | NUR ---
PT STILL YELLING OUT AND UNABLE TO REDIRECT. WILL CONTINUE TO MONITOR.
--- NOTE | 2019-06-13 22:25 | NUR ---
PT IS RESTING IN BED WITH EYES CLOSED. NO DISTRESS NOTED. WILL CONTINUE TO MONITOR.
[2019-06-14 09:08] VITALS: BP 145/88
--- NOTE | 2019-06-14 11:17 | NUR ---
PT IN CHAIR WITH EYES CLOSED. RESP EVEN AND NONLABORED. PT IS VERY DROWSY AND COULD NOT TAKE MEDICATIONS. PT DISPLAYED BEHAVIORS ON PREVIOUS SHIFT AND REC'D HALDOL AND ATIVAN. WILL REPORT TO DOCTOR ABOUT BEHAVIORS. CHAIR ALARM IN PLACE AND ACTIVE. WILL CONT PLAN OF CARE.
--- NOTE | 2019-06-14 12:25 | NUR ---
Nutrition Follow-up: PO intake improving. Ate 100% x [address] following. Diet: Regular, Puree, Honey Thick Liquids PO intake: 80% avg x 6 meals Wt: 136# (06/09); 138# (06/02); 141.4# (05/20) No new labs Meds noted: Protonix, Linzess, Megace -Encourage PO intake and honor food preferences within diet restrictions. -Offer nutrition supplements. -Monitor wt; wt loss noted. -RD following.
--- NOTE | 2019-06-14 15:37 | PN ---
PATIENT:BRIAN FONTENOT MEDICAL RECORD: [id number] LOCATION:[facility] ADMISSION DATE: 05/21/19 PROGRESS NOTE DATE OF SERVICE: 06/13/2019 SUBJECTIVE: The patient's case was discussed with staff. She has no new complaint. OBJECTIVE: The patient is awake and cooperative. She has not been aggressive. She is eating better. ASSESSMENT: Dementia. PLAN: The patient will be given a low dose of Seroquel to assist with her behavioral disturbances. She will be monitored for clinical changes associated with its use. Her long-term prognosis is guarded. TRANSINT:[id number] Voice Confirmation ID: [id number] DOCUMENT ID: [id number] JORGE ROSA MD at 1537 CC: [id number] DICTATION DATE: 06/13/19 1302 PURSE FRAMER: 06/13/19 1310 ADM IN [place] [id number] [place] [id number]
[2019-06-14 19:05] LABS: BASOPHILS 0.3 % (0-2); EOSINOPHILS 3.7 % (0-7); HEMATOCRIT 40.7 % (36.0-48.0); HEMOGLOBIN 12.4 g/dL (12-16); IMMATURE GRANULOCYTES 2.1 % (0-5); LYMPHOCYTES 14.8 % (15-50); MCH 28.2 pg (26.0-34.0); MCHC 30.5 g/dL (31.0-37.0); MCV 92.7 fL (80.0-100.0); MONOCYTES 6.3 % (2-11); NEUTROPHILS 72.8 % (40-80); PLATELET COUNT 312 10x3/uL (130-400); RBC 4.39 10x6/uL (4.00-5.40); RDW 16.3 % (11.5-14.5); WBC 13.5 10x3/uL (4.8-10.8)
[2019-06-14 19:20] LABS: ANION GAP 16.1 mmol/L (8-16); CARBON DIOXIDE 22.1 mmol/L (21.0-32.0); CREATININE - SERUM 1.3 mg/dL (0.6-1.3); POTASSIUM - SERUM 4.2 mmol/L (3.5-5.1)
[2019-06-14 20:36] VITALS: BP 150/76
--- NOTE | 2019-06-14 20:41 | NUR ---
PATIENT IS VERY CONFUSED, SHE IS HAVING A REPETITIVE SPEECH, MOANING LOUDLY, SEEMS ANXIOUS, MEDS CRUSHED, NO ADVERSE REACTION NOTED. WILL FOLLOW POC
[2019-06-15 10:09] VITALS: BP 137/67
--- NOTE | 2019-06-15 12:53 | NUR ---
The patient is sleeping and she is confused when she is awake as she yells out for help. She has not shown any aggression. Provide prescribed meds. The patient is compliant with meds. Continue POC.
--- NOTE | 2019-06-15 15:48 | PN ---
PATIENT:BRIAN FONTENOT MEDICAL RECORD: [id number] LOCATION:[facility] ADMISSION DATE: 05/21/19 PROGRESS NOTE DATE OF SERVICE: 06/14/2019 SUBJECTIVE: The patient's case was discussed with staff. She has no new complaint. OBJECTIVE: The patient is a little over sedated today. She did receive Haldol and Ativan last night for agitation. ASSESSMENT: Dementia. PLAN: Current medicines have been reviewed and will be maintained. I think the p.r.n. Haldol may be too much, especially if it is in combination with Ativan, so I am going to discontinue it now. TRANSINT:[id number] Voice Confirmation ID: [id number] DOCUMENT ID: [id number] JORGE ROSA MD at 1548 CC: [id number] DICTATION DATE: 06/14/191708 LEGAL AID: 06/14/19 171 ADM IN [place] [address] [place] [address]
--- NOTE | 2019-06-15 18:20 | NUR ---
pt conts to yell out "help me, oh! oh! god. take me home take me home." unable to redirect yelling out. pt can not state a reason for yelling out.
[2019-06-15 20:11] VITALS: BP 167/70
--- NOTE | 2019-06-15 21:30 | NUR ---
NO CHANGE IN PATIENT SINCE MY PREVIOUS SHIFT, SHE IS CALLING OUT RANDOM NAMES AND WANTS TO GO GET HER CAR, SHE SEEMS VERY ANXIOUS THAT IS NORMAL FOR HER. MEDS CRUSHED, COMPLIANT WITH MEDS, NO ADVERSE REACTION NOTED. WILL FOLLOW POC
--- NOTE | 2019-06-16 08:41 | PN ---
PATIENT:BRIAN FONTENOT MEDICAL RECORD: [id number] LOCATION:[facility] ADMISSION DATE: 05/21/19 PROGRESS NOTE DATE OF SERVICE: 06/15/2019 SUBJECTIVE: The patient's case was discussed with staff. She has no new complaint. OBJECTIVE: The patient is sleeping well and eating acceptably well. I discussed her situation with her son ____, and if improvement is not made with the various combinations of medicines she is getting in the next few days, he is willing to accept some sort of palliative care placement. TRANSINT:[id number] Voice Confirmation ID: [id number] DOCUMENT ID: [id number] JORGE ROSA MD at 0841 CC: [id number] DICTATION DATE: 06/15/191909 STEMHOLE BORER AND TOPPER: 06/15/192044 ADM IN [facility] [address] [place] [address]
[2019-06-16 10:35] VITALS: BP 120/69
[2019-06-16 20:00] VITALS: BP 149/65
--- NOTE | 2019-06-16 22:02 | NUR ---
PATIENT IS CONFUSED, CALLING OUT DIFFERENT NAMES, ALWAYS SEEMS TO BE "PANICKED", MEDS HAVE TO BE CRUSHED, COMPLIANT WITH MEDS, DOES NOT KNOW PHYSICAL LIMITATIONS. HAS NO INSIGHT TO SITUATION AT ALL. WILL FOLLOW POC
[2019-06-17 08:47] VITALS: BP 160/65
--- NOTE | 2019-06-17 12:00 | NUR ---
RECEIVED IN HALLWAY OUTSIDE OF NURSES STATION. CALM AND COOPERATIVE WITH CARE AND ASSESSMENT. NO AGGRESSIVE BEHAVIOR. NO YELLING OUT. REDIRECT AND REORIENT NEEDED. EATING LUNCH AT THIS TIME. CONTINUE PLAN OF CARE.
--- NOTE | 2019-06-17 13:42 | PN ---
PATIENT:BRIAN FONTENOT MEDICAL RECORD: [id number] LOCATION:[facility] ADMISSION DATE: 05/21/19 PROGRESS NOTE DATE OF SERVICE: 06/16/2019 SUBJECTIVE: The patient's case was discussed with staff. She has no new complaint. OBJECTIVE: The patient is in a reasonably good behavioral control. She is, however, quite confused. She did not receive p.r.n. medications last night. She did sleep almost 9 hours. She did not eat well yesterday. ASSESSMENT: Dementia. PLAN: Current medicines have been reviewed and will be maintained. Long-term prognosis is guarded. TRANSINT:[id number] Voice Confirmation ID: [id number] DOCUMENT ID: [id number] JORGE ROSA MD at 1342 CC: [id number] DICTATION DATE: 06/16/19904 MANAGER WELDING: 06/16/19 0934 ADM IN [place] [id number] [place] [address]
--- NOTE | 2019-06-17 19:21 | NUR ---
RECEIVED IN DAYROOM. SITTING IN A RECLINING CHAIR. CALM AND COOPERATIVE WITH CARE AND ASSESSMENT. NOT YELLING OUT. REDIRECT AND REORIENT NEEDED. ENCOURAGE TO EXPRESS NEEDS. CONTINUES TO SIT CALMLY IN DAYROOM. CONTINUE PLAN OF CARE.
[2019-06-17 19:24] VITALS: BP 163/84
[2019-06-18 08:46] VITALS: BP 130/65
--- NOTE | 2019-06-18 12:00 | NUR ---
[facility] CALM AND COOPERATIVE WITH CARE AND ASSESSMENT. NO YELLING OUT. NO AGGRESSIVE BEHAVIOR. REDIRECT AND REORIENT NEEDED. EATING LUNCH AT THIS TIME. CONTINUE PLAN OF CARE.
[2019-06-18 16:49] LABS: BASOPHILS 0.2 % (0-2); EOSINOPHILS 3.1 % (0-7); HEMATOCRIT 42.8 % (36.0-48.0); HEMOGLOBIN 12.7 g/dL (12-16); MCHC 29.7 g/dL (31.0-37.0); MCV 94.5 fL (80.0-100.0); MEAN PLATELET VOLUME 10.4 fL (7.4-10.4); MONOCYTES 10.2 % (2-11); NEUTROPHILS 73.5 % (40-80); RBC 4.53 10x6/uL (4.00-5.40); RDW 16.6 % (11.5-14.5); WBC 13.3 10x3/uL (4.8-10.8)
[2019-06-18 17:15] LABS: ANION GAP 17.9 mmol/L (8-16); CALCIUM 8.6 mg/dL (8.5-10.1); CARBON DIOXIDE 21.3 mmol/L (21.0-32.0); CREATININE - SERUM 1.2 mg/dL (0.6-1.3); POTASSIUM - SERUM 4.2 mmol/L (3.5-5.1)
[2019-06-18 17:18] LABS: PLATELET COUNT 249 10x3/uL (130-400)
--- NOTE | 2019-06-18 21:22 | NUR ---
B.) PT IS ALERT AND ORIENTED TO SELF ONLY. SHE HAS POOR INSIGHT INTO HER SITUATION. SHE IS RECEIVED IN THE HALLWAY IN A GERICHAIR. SHE IS YELLING OUT AT TIMES. SHE HAS A FLAT AFFECT BUT COOPERATIVE WITH STAFF. I.) PROVIDED PM MEDICATIONS. REDIRECT OFTEN. R.) COMPLIANT WITH ALL MEDICATIONS. DIFFICULT TO REDIRECT AT TIMES. P.) WILL CONTINUE TO MONITOR.
[2019-06-18 21:35] VITALS: BP 133/70
[2019-06-19 07:53] VITALS: BP 130/70
--- NOTE | 2019-06-19 08:30 | NUR ---
RECEIVED IN HALLWAY OUTSIDE OF NURSES STATION. CALM AND COOPERATIVE WITH CARE AND ASSESSMENT. NO YELLING OUT. NO AGGRESSION. REDIRECT AND REORIENT NEEDED. EATING BREAKFAST AT THIS TIME. CONTINUE PLAN OF CARE.
--- NOTE | 2019-06-19 13:39 | PN ---
PATIENT:BRIAN FONTENOT MEDICAL RECORD: [id number] LOCATION:[facility] ADMISSION DATE: 05/21/19 PROGRESS NOTE DATE OF SERVICE: 06/18/2019 SUBJECTIVE: The patient's case was discussed with staff. She has no new complaint. OBJECTIVE: The patient denies intent to harm herself or others. She is tolerating her medicines well, but not eating well. ASSESSMENT: Dementia. PLAN: The patient will be maintained on current medicines. I am going to order baseline labs. TRANSINT:[id number] Voice Confirmation ID: [id number] DOCUMENT ID: [id number] JORGE ROSA MD at 1339 CC: [id number] DICTATION DATE: 06/18/19 155 HAND BINDER STRIPPER: 06/18/19 1557 ADM IN [facility] [address] [place] [address]
--- NOTE | 2019-06-19 13:39 | PN ---
PATIENT:BRIAN FONTENOT MEDICAL RECORD: [id number] LOCATION:[facility] ADMISSION DATE: 05/21/19 PROGRESS NOTE DATE OF SERVICE: 06/17/2019 SUBJECTIVE: The patient's case was discussed with staff. She has no new complaint. OBJECTIVE: The patient is impaired cognitively, but has not been aggressive. She is also not eating well. ASSESSMENT: Dementia. PLAN: Current medicines and therapies have been reviewed. Brief supportive and educational interventions were made. I have discussed the case with her son and at this point we are going to be looking for placement. TRANSINT:[id number] Voice Confirmation ID: [id number] DOCUMENT ID: [id number] JORGE ROSA MD at 1339 CC: [id number] DICTATION DATE: 06/18/19 1550 FUNDRAISING SALE REPRESENTATIVE: 06/18/19 1556 ADM IN [place] [id number] [place] [id number]
[2019-06-19] MEDS ORDERED: OMNICEF300 MG PO (14:25)
[2019-06-19] MEDS ORDERED: FEXOFENADINE HC60 MG PO (14:25)
[2019-06-19] MEDS ORDERED: BUSPAR10 MG PO (14:26)
[2019-06-19] MEDS ORDERED: SEROQUEL25 MG PO (14:26)
[2019-06-19] MEDS ORDERED: NAMENDA5 MG PO (14:26)
[2019-06-19] MEDS ORDERED: KLONOPIN0.5 MG PO (14:27)
[2019-06-19] MEDS ORDERED: LINZESS145 MCG PO (14:27)
[2019-06-19] MEDS ORDERED: PROTONIX FOR OR40 MG PO (14:27)
[2019-06-19] MEDS ORDERED: Megace ES [CHEMO] PO (14:27)
[2019-06-19] MEDS ORDERED: LIDODERM 5 %1 PATCH TRANSDERM (14:28)
[2019-06-19 19:30] VITALS: BP 146/72
--- NOTE | 2019-06-19 19:41 | NUR ---
RECEIVED IN BEDROOM. RESTING IN BED WITH EYES CLOSED. YELLING OUT AT TIMES. REDIRECT AND REORIENT NEEDED. CONTINUES TO REST EYES CLOSED IN BED. CONTINUE PLAN OF CARE.
[2019-06-20 07:46] VITALS: BP 137/69
[2019-06-20 08:00] VITALS: BP 137/69
--- NOTE | 2019-06-20 11:20 | PN ---
PATIENT:BRIAN FONTENOT MEDICAL RECORD: [id number] LOCATION:[facility] ADMISSION DATE: 05/21/19 PROGRESS NOTE DATE OF SERVICE: 06/19/2019 SUBJECTIVE: The patient's case was discussed with staff. She has no new complaint. OBJECTIVE: The patient is in good behavioral control. She has poor insight about her situation. ASSESSMENT: Dementia. PLAN: The patient will be transitioned out of the hospital tomorrow. Appears she has reached maximum hospital benefit. TRANSINT:[id number] Voice Confirmation ID: [id number] DOCUMENT ID: [id number] JORGE ROSA MD at 1120 CC: [id number] DICTATION DATE: 06/19/19 1423 SCENE SHIFTER: 06/19/19 1533 ADM IN [place] [id number] [place] [id number]
--- NOTE | 2019-06-20 13:20 | NUR ---
PT SITTING IN CHAIR EATING LUNCH AT THIS TIME. PT IS CONFUSED AND ORIENTED TO SELF ONLY. REDIRECT AND REORIENT NEEDED. PT HAS HAD NO BEHAVIORS AT THIS TIME. CHAIR ALARM IN PLACE AND ACTIVE. WILL CONT PLAN OF CARE.
--- NOTE | 2019-06-20 17:31 | NUR ---
PT DISCHARGED HOME HOSPICE VIA EMS. PT WAS STABLE AT TIME OF DISCHARGE. 2X ASSIST FROM W/C TO STRETCHER. PT CONFUSED AND MUMBLING TO SELF. PAPERWORK SENT WITH PT AND EMS. BELONGINGS SENT WELL. NOTIFIED SON OF DISCHARGE FROM UNIT. NURSE EXPLAINED TO SON HER DIET AND STATED CUP OF SOUP SENT WITH HER ON TRANSPORT. HE STATED UNDERSTANDING AND THANKED NURSE.
--- NOTE | 2019-06-21 14:05 | PN ---
PATIENT:BRIAN FONTENOT MEDICAL RECORD: [id number] LOCATION:[facility] ADMISSION DATE: 05/21/19 PROGRESS NOTE DATE OF SERVICE: 06/20/2019 SUBJECTIVE: The patient's case was discussed with staff. She has no new complaint. OBJECTIVE: The patient continues to have episodic outbursts of behavior. Unfortunately, this appears to be something that is not going to change. She is going to be discharged today. Her son is going to care for her. He is a nurse, his is a nurse. He actually has extensive experience on a geriatric psychiatry unit. The patient is also going to have hospice there to assist. Unfortunately, her long-term prognosis is exceedingly poor. Her dementia is very advanced and she is not eating adequately, despite what I would describe as almost heroic efforts on the part of the nursing staff to get her to do so. TRANSINT:[id number] Voice Confirmation ID: [id number] DOCUMENT ID: [id number] JORGE ROSA MD at 1405 CC: [id number] DICTATION DATE: 06/20/19 1159 SILK SCREENER: 06/20/19 1650 DIS IN 06/20/19 [facility] [address] [place] [address]
== END 2019-06-20 15:45 | disposition home health service (06) | DRG 57 ==
LOC: D.PSYCH 11:12
PROVIDERS: ADMIT Psychiatry & Neurology Psychiatry; ATTEND Psychiatry & Neurology Psychiatry
DX: G30.9 Alzheimer's disease, unspecified (principal); F02.81 Dementia in other diseases classified elsewhere, unspecified severity, with behavioral disturbance; I25.10 Atherosclerotic heart disease of native coronary artery without angina pectoris; I10 Essential (primary) hypertension; F41.9 Anxiety disorder, unspecified; K21.9 Gastro-esophageal reflux disease without esophagitis; K59.01 Slow transit constipation; D64.9 Anemia, unspecified; M54.5 Low back pain; G89.29 Other chronic pain; R63.0 Anorexia; Z68.22 Body mass index [BMI] 22.0-22.9, adult; Z72.0 Tobacco use